=== PATIENT | male | born 1965 | race Caucasian/White ===

== ENCOUNTER 2023-02-07 09:12 | Inpatient (IN) ==
[2023-02-07] MEDS ORDERED: cefTRIAXone SODIUM 2,000 MG/70 ML BAG IV STA (09:33)
--- NOTE | 2023-02-07 10:04 | Emergency Department Note ---
Impression & Plan Cellulitis, Acute hyponatremia, Hypomagnesemia ED Provider Note NAME: VIKRAM ARELLANO AGE: 57 SEX: M : 1965 ARRIVES VIA: Walk-In INFORMANT: Patient, ED PROVIDER(S): Lorenzo Carrero DO CHIEF COMPLAINT: Leg pain HPI: The patient is a 57-year-old male who presented to the emergency department for an evaluation of leg pain and swelling. He has had ongoing symptoms for many months. He noticed his left leg was getting much worse. He does not have a family doctor. He states he has a history of alcohol abuse. He denies having any chest pain or difficulty breathing. He denies having any fevers but he has not checked his temperature. ROS: See above HPI for pertinent positives & negatives. A total of 10 systems reviewed and were otherwise negative. PAST MEDICAL HISTORY: See Below PAST SURGICAL HISTORY: See Below FAMILY HISTORY: See Below SOCIAL HISTORY: See Below HOME MEDICATIONS: See Below ALLERGIES: See Below VITALS: See Below PHYSICAL EXAMINATION: GENERAL: The patient is awake and alert. He is somewhat anxious appearing. EYES: The conjunctivae are clear. The pupils are round and reactive. EARS, NOSE, MOUTH AND THROAT: The nose is without any evidence of any deformity. NECK: The neck is nontender and supple. RESPIRATORY: Normal respiratory effort is noted there is no evidence of wheezing rhonchi or rales CARDIOVASCULAR: Regular rate and rhythm noted there no murmurs rubs or gallops normal S1 normal S2. GASTROINTESTINAL: The abdomen is soft. Abdomen is nontender. MUSCULOSKELETAL/EXTREMITIES: There is no evidence of gross deformity full range of motion is noted in the hips and shoulders. SKIN: There is bilateral lower extremity edema left greater than right. The left leg is very erythematous. There is an ulceration with eschar noted to the left 2nd toe. NEUROLOGIC: Patient is awake alert and oriented x3 MEDICAL DECISION MAKING: The patient is a 57-year-old male who presented to the emergency department for an evaluation of left leg pain and swelling. The patient's history and physical exam appear to be consistent with cellulitis with an ulcer on the left second toe. The patient was treated with IV antibiotics emergency department. He was reevaluated multiple times. The patient does not have a primary care physician. I am concerned about his ability to follow-up as an outpatient. For this reason I discussed this case with the on-call [facility]ist. They have agreed to evaluate the patient in the emergency department for further management and disposition. Triage Nursing notes reviewed. Prior medical records reviewed Vital Signs: reviewed and remarkable for no significant abnormalities Differential diagnosis: Cellulitis, abscess, MRSA infection, DVT, necrotizing fasciitis, dermatitis, drug eruption, allergic reaction, as well as other pathologies. ER treatment provided: See below Diagnostics interpreted by me: ECG: EKG was obtained in the emergency department. My interpretation is sinus bradycardia at 58 bpm. There were no PVCs noted. There is no acute ST segment abnormalities noted. This was compared to a tracing from January 28, 2014. No changes were noted. Cardiac Monitoring: An order was placed for continuous cardiac monitoring. The monitor shows a rate of 68 bpm with sinus rhythm. Laboratory studies: As stated above and show below. Imaging studies: See below. Radiographic imaging was reviewed by myself Consultation(s): I discussed this case with Dr. Ornelas who is on-call for the [facility]ist group. Past Med/Surg History Medical History Avascular necrosis of bone of left hip (03/02/14) Hypertension Social History Smoking Status: Former smoker Preferred Language: Slovenian Feels Safe at Home: Yes Allergies Allergies Allergy/AdvReac Type Severity Reaction Status Date / Time prednisone Allergy Unknown FACIAL Verified 02/07/23 13:29 SWELLING, SWELLING ALL OVER Egg Derived AdvReac Unknown NAUSEATED Verified 02/07/23 13:29 hydrocodone AdvReac Unknown NAUSEA Verified 02/07/23 13:29 morphine AdvReac Unknown NAUSEATED Verified 02/07/23 13:29 Home Meds Home Medications Medication Instructions Recorded Confirmed omeprazole 20 mg tablet,delayed 20 mg PO DAILY PRN Acid Reflux ##0 01/23/09 02/07/23 release zolpidem 10 mg tablet 10 mg PO HS ##0 10/09/11 02/07/23 allopurinol 300 mg tablet 300 mg PO DAILY 02/07/23 02/07/23 atenolol 50 mg tablet 50 mg PO DAILY 02/07/23 02/07/23 Results & Data (ED) Vital Signs Vital Signs - 24 hr 02/07/23 09:20 02/07/23 12:25 02/07/23 11:00 Temperature 36.4 C L Temperature Source Temporal Artery Scan Pulse Rate 67 70 Pulse Rate [Bilateral] 70 Pulse Rhythm Regular Pulse Strength Normal Respiratory Rate 20 18 Respiratory Effort / Characteristics Non-Labored Spontaneous Respiratory Depth Normal Respiratory Pattern Regular Blood Pressure 124/83 Blood Pressure [Left Arm] 133/83 Blood Pressure Mean 96 Blood Pressure Mean [Left Arm] 99 Blood Pressure Position Sitting Pulse Oximetry 97 99 Oxygen Delivery Method Room Air Room Air Sepsis Recent Fever Within 48 Hours No Sepsis New/Unexplained Change in Mental Status No Sepsis Action Taken by Nursing No Action Required 02/07/23 11:15 02/07/23 11:30 02/07/23 11:45 Temperature Temperature Source Pulse Rate Pulse Rate [Bilateral] 73 70 64 Pulse Rhythm Pulse Strength Respiratory Rate 20 20 18 Respiratory Effort / Characteristics Respiratory Depth Respiratory Pattern Blood Pressure Blood Pressure [Left Arm] 161/94 H 142/88 H 149/88 H Blood Pressure Mean Blood Pressure Mean [Left Arm] 116 106 108 Blood Pressure Position Pulse Oximetry 98 96 98 Oxygen Delivery Method Room Air Room Air Room Air Sepsis Recent Fever Within 48 Hours Sepsis New/Unexplained Change in Mental Status Sepsis Action Taken by Nursing 02/07/23 12:00 02/07/23 12:15 02/07/23 12:30 Temperature Temperature Source Pulse Rate Pulse Rate [Bilateral] 59 L 60 78 Pulse Rhythm Pulse Strength Respiratory Rate 18 18 18 Respiratory Effort / Characteristics Respiratory Depth Respiratory Pattern Blood Pressure Blood Pressure [Left Arm] 129/85 126/79 Blood Pressure Mean Blood Pressure Mean [Left Arm] 99 94 Blood Pressure Position Pulse Oximetry 98 98 98 Oxygen Delivery Method Room Air Room Air Room Air Sepsis Recent Fever Within 48 Hours Sepsis New/Unexplained Change in Mental Status Sepsis Action Taken by Nursing 02/07/23 12:45 02/07/23 13:00 02/07/23 13:00 Temperature Temperature Source Pulse Rate Pulse Rate [Bilateral] 63 68 68 Pulse Rhythm Pulse Strength Respiratory Rate 18 18 18 Respiratory Effort / Characteristics Respiratory Depth Respiratory Pattern Blood Pressure Blood Pressure [Left Arm] 142/77 H 135/88 135/88 Blood Pressure Mean Blood Pressure Mean [Left Arm] 98 103 103 Blood Pressure Position Pulse Oximetry 95 99 99 Oxygen Delivery Method Room Air Room Air Room Air Sepsis Recent Fever Within 48 Hours Sepsis New/Unexplained Change in Mental Status Sepsis Action Taken by Nursing 02/07/23 13:25 Temperature Temperature Source Pulse Rate Pulse Rate [Bilateral] Pulse Rhythm Pulse Strength Respiratory Rate Respiratory Effort / Characteristics Respiratory Depth Respiratory Pattern Blood Pressure Blood Pressure [Left Arm] Blood Pressure Mean Blood Pressure Mean [Left Arm] Blood Pressure Position Pulse Oximetry 98 Oxygen Delivery Method Room Air Sepsis Recent Fever Within 48 Hours Sepsis New/Unexplained Change in Mental Status Sepsis Action Taken by Custodial Medications Current Medication List: was personally reviewed by me Laboratory Data Attestation: I reviewed the patient's lab results. 02/07/23 09:33 02/07/23 09:33 Lab Results 02/07/23 02/07/23 02/07/23 Range/Units 09:33 09:33 09:33 WBC 5.38 (4.8-10.8) K/ul RBC 4.26 L (4.70-6.10) M/uL Hgb 13.4 L (14.0-18.0) g/dl Hct 39.1 L (42.0-52.0) % MCV 91.8 (80.0-100.0) fL MCH 31.5 (25.0-34.0) pg MCHC 34.3 (32.0-36.0) g/dL RDW Std Deviation 42.7 (36.4-46.3) fL RDW Coeff of Bertram 12.9 (11.5-14.5) % Plt Count 170 (130-400) K/uL MPV 9.9 (9.4-12.4) fL Immature Gran % (Auto) 0.4 % Neut % (Auto) 60.1 % Lymph % (Auto) 19.7 % Alexander % (Auto) 11.7 % Eos % (Auto) 7.4 % Baso % (Auto) 0.7 % Neut # (Auto) 3.23 (1.40-6.50) K/uL Lymph # (Auto) 1.06 L (1.2-3.4) K/uL Alexander # (Auto) 0.63 H (0.11-0.59) K/uL Eos # (Auto) 0.40 (0-0.50) K/uL Baso # (Auto) 0.04 (0-0.2) K/uL Immature Gran # (Auto) 0.02 (0.01-0.20) K/uL PT 11.9 (9.0-12.0) Seconds INR 1.1 (0.9-1.1) APTT 30.8 (21.0-31.0) Seconds PTT Ratio 1.1 VBG pH (7.36-7.41) VBG pCO2 (38-50) mmHg VBG pO2 mmHg VBG HCO3 mmol/L VBG O2 Saturation % VBG Base Excess mEq/L Sodium 124 L (136-145) mmol/L Potassium 3.4 L (3.5-5.1) mmol/L Chloride 90 L (98-107) mmol/L Carbon Dioxide 27 (21-32) mmol/L Anion Gap 7 (3-11) BUN 7 (6-23) mg/dl Creatinine 0.62 (0.6-1.4) mg/dl Est Cr Clr Drug Dosing 165.0 ml/min Est GFR ( Amer) 129.4 ml/min Est GFR (Non-Af Amer) 111.7 ml/min BUN/Creatinine Ratio 11.3 (10-20) Glucose 102 H (70-99(Fasting)) mg/dl Lactate (0.4-2.0) mmol/L Calcium 9.0 (8.6-10.3) mg/dl Magnesium 1.6 L (1.7-2.4) mg/dl Total Bilirubin 1.1 H (0.2-1.0) mg/dl Direct Bilirubin 0.4 H (0-0.2) mg/dl AST 67 H (13-39) U/L ALT 45 (7-52) U/L Alkaline Phosphatase 185 H (34-104) U/L Troponin I High Sens 3.4 (0-20) pg/ml Total Protein 7.6 (6.0-8.3) gm/dl Albumin 3.7 (3.4-5.0) gm/dl Procalcitonin (0-0.5) ng/ml Urine Color Urine Appearance (Clear) Urine pH (4.5-7.5) Ur Specific Guys (1.000-1.030) Urine Protein (Negative) Urine Glucose (UA) (Negative) Urine Ketones (Negative) Urine Blood (Negative) Urine Nitrite (Negative) Urine Bilirubin (Negative) Urine Urobilinogen (Negative) Ur Leukocyte Esterase (Negative) Ethyl Alcohol mg/dL (<10.0) mg/dl 02/07/23 02/07/23 02/07/23 Range/Units 09:33 09:33 09:33 WBC (4.8-10.8) K/ul RBC (4.70-6.10) M/uL Hgb (14.0-18.0) g/dl Hct (42.0-52.0) % MCV (80.0-100.0) fL MCH (25.0-34.0) pg MCHC (32.0-36.0) g/dL RDW Std Deviation (36.4-46.3) fL RDW Coeff of Bertram (11.5-14.5) % Plt Count (130-400) K/uL MPV (9.4-12.4) fL Immature Gran % (Auto) % Neut % (Auto) % Lymph % (Auto) % Alexander % (Auto) % Eos % (Auto) % Baso % (Auto) % Neut # (Auto) (1.40-6.50) K/uL Lymph # (Auto) (1.2-3.4) K/uL Alexander # (Auto) (0.11-0.59) K/uL Eos # (Auto) (0-0.50) K/uL Baso # (Auto) (0-0.2) K/uL Immature Gran # (Auto) (0.01-0.20) K/uL PT (9.0-12.0) Seconds INR (0.9-1.1) APTT (21.0-31.0) Seconds PTT Ratio VBG pH 7.33 L (7.36-7.41) VBG pCO2 49 (38-50) mmHg VBG pO2 39 mmHg VBG HCO3 26 mmol/L VBG O2 Saturation 60.0 % VBG Base Excess -0.7 mEq/L Sodium (136-145) mmol/L Potassium (3.5-5.1) mmol/L Chloride (98-107) mmol/L Carbon Dioxide (21-32) mmol/L Anion Gap (3-11) BUN (6-23) mg/dl Creatinine (0.6-1.4) mg/dl Est Cr Clr Drug Dosing ml/min Est GFR ( Amer) ml/min Est GFR (Non-Af Amer) ml/min BUN/Creatinine Ratio (10-20) Glucose (70-99(Fasting)) mg/dl Lactate 0.9 (0.4-2.0) mmol/L Calcium (8.6-10.3) mg/dl Magnesium (1.7-2.4) mg/dl Total Bilirubin (0.2-1.0) mg/dl Direct Bilirubin (0-0.2) mg/dl AST (13-39) U/L ALT (7-52) U/L Alkaline Phosphatase (34-104) U/L Troponin I High Sens (0-20) pg/ml Total Protein (6.0-8.3) gm/dl Albumin (3.4-5.0) gm/dl Procalcitonin 0.06 (0-0.5) ng/ml Urine Color Urine Appearance (Clear) Urine pH (4.5-7.5) Ur Specific Guys (1.000-1.030) Urine Protein (Negative) Urine Glucose (UA) (Negative) Urine Ketones (Negative) Urine Blood (Negative) Urine Nitrite (Negative) Urine Bilirubin (Negative) Urine Urobilinogen (Negative) Ur Leukocyte Esterase (Negative) Ethyl Alcohol mg/dL (<10.0) mg/dl 02/07/23 02/07/23 Range/Units 09:33 Unknown WBC (4.8-10.8) K/ul RBC (4.70-6.10) M/uL Hgb (14.0-18.0) g/dl Hct (42.0-52.0) % MCV (80.0-100.0) fL MCH (25.0-34.0) pg MCHC (32.0-36.0) g/dL RDW Std Deviation (36.4-46.3) fL RDW Coeff of Bertram (11.5-14.5) % Plt Count (130-400) K/uL MPV (9.4-12.4) fL Immature Gran % (Auto) % Neut % (Auto) % Lymph % (Auto) % Alexander % (Auto) % Eos % (Auto) % Baso % (Auto) % Neut # (Auto) (1.40-6.50) K/uL Lymph # (Auto) (1.2-3.4) K/uL Alexander # (Auto) (0.11-0.59) K/uL Eos # (Auto) (0-0.50) K/uL Baso # (Auto) (0-0.2) K/uL Immature Gran # (Auto) (0.01-0.20) K/uL PT (9.0-12.0) Seconds INR (0.9-1.1) APTT (21.0-31.0) Seconds PTT Ratio VBG pH (7.36-7.41) VBG pCO2 (38-50) mmHg VBG pO2 mmHg VBG HCO3 mmol/L VBG O2 Saturation % VBG Base Excess mEq/L Sodium (136-145) mmol/L Potassium (3.5-5.1) mmol/L Chloride (98-107) mmol/L Carbon Dioxide (21-32) mmol/L Anion Gap (3-11) BUN (6-23) mg/dl Creatinine (0.6-1.4) mg/dl Est Cr Clr Drug Dosing ml/min Est GFR ( Amer) ml/min Est GFR (Non-Af Amer) ml/min BUN/Creatinine Ratio (10-20) Glucose (70-99(Fasting)) mg/dl Lactate (0.4-2.0) mmol/L Calcium (8.6-10.3) mg/dl Magnesium (1.7-2.4) mg/dl Total Bilirubin (0.2-1.0) mg/dl Direct Bilirubin (0-0.2) mg/dl AST (13-39) U/L ALT (7-52) U/L Alkaline Phosphatase (34-104) U/L Troponin I High Sens (0-20) pg/ml Total Protein (6.0-8.3) gm/dl Albumin (3.4-5.0) gm/dl Procalcitonin (0-0.5) ng/ml Urine Color Yellow Urine Appearance Clear (Clear) Urine pH 7.0 (4.5-7.5) Ur Specific Guys 1.004 (1.000-1.030) Urine Protein Negative (Negative) Urine Glucose (UA) Negative (Negative) Urine Ketones Negative (Negative) Urine Blood Negative (Negative) Urine Nitrite Negative (Negative) Urine Bilirubin Negative (Negative) Urine Urobilinogen Negative (Negative) Ur Leukocyte Esterase Negative (Negative) Ethyl Alcohol mg/dL < 10.0 (<10.0) mg/dl Administered Medications Discontinued Medications Ceftriaxone Sodium (Rocephin) 2,000 mg in 70 mls @ 140 mls/hr IV NOW STA Stop: 02/07/23 10:02 Last Infusion: 02/07/23 11:58 Dose: 0 mls/hr Documented By: Admin: 02/07/23 10:59 Dose: 140 mls/hr Documented By: TRUMAN Magnesium Sulfate/Dextrose (Magnesium Sulfate / D5w) 1 gm in 100 mls @ 100 mls/hr IV NOW STA Stop: 02/07/23 12:09 Last Infusion: 02/07/23 13:26 Dose: 0 mls/hr Documented By: Admin: 02/07/23 12:23 Dose: 100 mls/hr Documented By: Thiamine HCl 100 mg/ Syringe 10 mls @ 2 mls/min IV NOW STA Stop: 02/07/23 11:14 Last Admin: 02/07/23 12:23 Dose: 2 mls/min Documented By: Imaging Data Attestation: I personally reviewed and interpreted this imaging study as follows: My Impression: 1 view chest x-ray was obtained in the emergency department. My interpretation is no free air or definite infiltrate, final report below. Radiologist's Impression: Chest X-Ray 02/07/23 09:33 XR chest 1V portable CLINICAL HISTORY: Sepsis TECHNIQUE: Single frontal radiograph of the chest was obtained. Comparison: None available at the time of this dictation. FINDINGS: No lines and tubes are seen. The cardiomediastinal silhouette is normal. The missy ngs are clear. No evidence of pleural effusion or pneumothorax. IMPRESSION: No acute abnormalities and in particular no radiographic evidence of pneumonia. ACT 112: Negative or not required by law. Electronically signed by: Rony Hunter M.D. 02/07/2023 10:01 AM Venous Doppler Study 02/07/23 09:33 US venous doppler LE CLINICAL HISTORY: swellnig TECHNIQUE: Left lower extremity real-time compression venous ultrasound with Color Doppler imaging. Utilizing real-time ultrasonic imaging multiple real time high-resolution ultrasonic images with compression and noncompression maneuvers of the deep venous system in addition to color doppler imaging were performed from the common femoral vein through the proximal calf veins. COMPARISON: None available at the time of this dictation. FINDINGS/IMPRESSION: Currently there is normal compressibility of the deep venous system from the com mon femoral vein through the proximal calf veins. A small amount of soft tissue edema is seen in the calf. ACT 112: Negative or not required by law. Electronically signed by: Rony Hunter M.D. 02/07/2023 12:25 PM Discharge Plan Visit Data Chief Complaint: Foot Injury/Pain Stated Complaint: L FOOT TOE IS BLACK, ED Provider: Lorenzo Carrero Discharge Problem: Cellulitis, Acute hyponatremia, Hypomagnesemia Patient Disposition: Being Evaluated by Hospitalist Forms Stand Alone Forms: My [facility] Prescriptions Prescriptions: No Action omeprazole 20 mg Tablet,Delayed Release (Dr/Ec) 20 mg PO DAILY PRN (Reason: Acid Reflux) Qty: 0 zolpidem 10 mg Tablet 10 mg PO HS Qty: 0 allopurinol 300 mg tablet 300 mg PO DAILY atenolol 50 mg tablet 50 mg PO DAILY Referrals Referrals: PCP,NO [Primary Care Provider] -
[2023-02-07 10:52] LABS: Basophils # (auto) 0.04 K/uL (0-0.2); Basophils % (auto) 0.7 %; Eosinophils % (auto) 7.4 %; Hematocrit (blood only) 39.1 % (42.0-52.0); Hemoglobin 13.4 g/dl (14.0-18.0); Immature Granulocytes # (auto) 0.02 K/uL (0.01-0.20); Immature Granulocytes % (auto) 0.4 %; Lymphocytes # (auto) 1.06 K/uL (1.2-3.4); Lymphocytes % (auto) 19.7 %; Mean Corpuscular Hemoglobin 31.5 pg (25.0-34.0); Mean Corpuscular Hgb Conc 34.3 g/dL (32.0-36.0); Mean Corpuscular Volume 91.8 fL (80.0-100.0); Mean Platelet Volume 9.9 fL (9.4-12.4); Monocytes # (auto) 0.63 K/uL (0.11-0.59); Monocytes % (auto) 11.7 %; Neutrophils # (auto) 3.23 K/uL (1.40-6.50); Neutrophils % (auto) 60.1 %; Platelet Count 170 K/uL (130-400); RDW Coefficient of Variation 12.9 % (11.5-14.5); RDW Standard Deviation 42.7 fL (36.4-46.3); Red Blood Count 4.26 M/uL (4.70-6.10); White Blood Count 5.38 K/ul (4.8-10.8)
[2023-02-07 11:07] LABS: Base Excess VBG -0.7 mEq/L; HCO3 VBG 26 mmol/L; PCO2 VBG 49 mmHg (38-50); PO2 VBG 39 mmHg; pH VBG 7.33 (7.36-7.41)
[2023-02-07 11:08] LABS: Albumin Level 3.7 gm/dl (3.4-5.0); BUN Creatinine Ratio 11.3 (10-20); Bilirubin Direct 0.4 mg/dl (0-0.2); Bilirubin,Total 1.1 mg/dl (0.2-1.0); Est GFR (African American) 129.4 ml/min; Est GFR (Non-African American) 111.7 ml/min; Magnesium 1.6 mg/dl (1.7-2.4); Potassium 3.4 mmol/L (3.5-5.1); Total Protein 7.6 gm/dl (6.0-8.3)
[2023-02-07] MEDS ORDERED: MAGNESIUM SULFATE / D5W 1 GM/100 ML BAG IV STA (11:10)
[2023-02-07] MEDS ORDERED: THIAMINE HCL 100 MG in SYRINGE 9 ML IV STA (11:10)
[2023-02-07 11:15] LABS: Troponin I High Sensitivity 3.4 pg/ml (0-20)
[2023-02-07 11:25] LABS: INR 1.1 (0.9-1.1); Partial Thromboplastin Ratio 1.1; Partial Thromboplastin Time 30.8 Seconds (21.0-31.0); Prothrombin Time 11.9 Seconds (9.0-12.0)
[2023-02-07 12:03] LABS: Appearance Urine Clear (Clear); Bilirubin Urine Negative (Negative); Blood Urine Negative (Negative); Color Urine Yellow; Glucose Urine UA Negative (Negative); Ketones Urine Negative (Negative); Leukocyte Esterase Urine Negative (Negative); Nitrite Urine Negative (Negative); Protein Urine Negative (Negative); Specific Gravity Urine 1.004 (1.000-1.030); Urobilinogen Urine Negative (Negative)
--- NOTE | 2023-02-07 12:26 | Ultrasound Report ---
US venous doppler LE LT CLINICAL HISTORY: swellnig TECHNIQUE: Left lower extremity real-time compression venous ultrasound with Color Doppler imaging. U tilizing real-time ultrasonic imaging multiple real time high-resolution ultrasonic images with compr ession and noncompression maneuvers of the deep venous system in addition to color doppler imaging we re performed from the common femoral vein through the proximal calf veins. COMPARISON: None available at the time of this dictation. FINDINGS/IMPRESSION: Currently there is normal compressibility of the deep venous system from the common femoral vein thro ugh the proximal calf veins. A small amount of soft tissue edema is seen in the calf. ACT 112: Negative or not required by law. Electronically signed by: Rony Hunter M.D. 02/07/2023 12:25 PM
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
[2023-02-07] MEDS ORDERED: LORazepam 1 MG TAB PO PRN ×3 (14:04)
[2023-02-07] MEDS ORDERED: Ativan PO Alcohol Withdrawal--Active Protocol PO PRN (14:04)
--- NOTE | 2023-02-07 15:45 | XRay Report ---
XR hip LT min 2V CLINICAL HISTORY: Left hip pain TECHNIQUE: 2 views of the left hip and single frontal view of the pelvis were obtained. Comparison: Comparison is made to left hip radiograph 03/02/2014 FINDINGS: There is no evidence of an acute fracture. Total hip arthroplasty is seen without evidence of hardwar e fracture or perihardware lucency. No soft tissue abnormality is seen. IMPRESSION: No evidence of acute osseous injury. ACT 112: Negative or not required by law. Electronically signed by: Rony Hunter M.D. 02/07/2023 3:42 PM
--- NOTE | 2023-02-07 15:54 | XRay Report ---
LEFT ANKLE 3 VIEWS CLINICAL HISTORY: Left ankle swelling. FINDINGS: 3 views of the left ankle are obtained. No prior studies are available for comparison at th e time of dictation. The skeletal structures are osteopenic. No fracture is seen. The ankle mortise i s intact. Degenerative change is noted at the tibiotalar articulation. There is degenerative spurring along the dorsal aspect of the tarsal bones. There is a tiny dorsal heel spur. Soft tissue swelling is present throughout the left leg, greatest around ankle joint. IMPRESSION: Soft tissue swelling with no acute bony abnormality identified. Electronically signed by: Leo Flynn M.D. 02/07/2023 3:52 PM
--- NOTE | 2023-02-07 15:55 | Ultrasound Report ---
US arterial duplex left lower extremity CLINICAL HISTORY: Unilateral Leg Swelling COMPARISON STUDY: None. FINDINGS: The ankle brachial indices were not performed. Normal triphasic to biphasic waveforms and v elocities seen within the left common femoral and left superficial femoral arteries. Monophasic herlinda l velocity waveforms seen within the left popliteal artery. Biphasic normal velocity waveforms seen w ithin the left posterior tibial artery. The elevated peak systolic velocity of 186 cm/s within the di stal left peroneal artery with associated monophasic waveforms. This is consistent with an area of st enosis. Monophasic normal velocity waveforms seen within the left anterior tibial artery and dorsalis pedis arteries suggestive of diffuse atherosclerotic disease. No evidence for arterial occlusion IMPRESSION: 1. No evidence for arterial occlusion within the left lower extremity. 2. Monophasic waveforms seen within the left popliteal artery and majority of the calf arteries sugge stive of diffuse atherosclerotic disease. 3. Elevated peak systolic velocities within the distal left peroneal artery suggestive of hemodynamic ally significant stenosis. ACT 112: Negative or not required by law. Electronically signed by: Eldon Arreola M.D. 02/07/2023 3:53 PM
--- NOTE | 2023-02-07 15:56 | XRay Report ---
XR foot LT min 3V routine CLINICAL HISTORY: Left foot pain/swelling COMPARISON STUDY: None. FINDINGS: Diffuse soft tissue swelling within the left foot. No fracture or dislocation. There is a s oft tissue and bony bunion at the medial head of the first metatarsal. Moderate osteoarthritis at the first MTP joint. The Lisfranc joint is intact. No erosive changes identified. No radiopaque foreign bodies. Mild degenerative changes at the intertarsal joints. IMPRESSION: 1. Diffuse soft tissue swelling within the left foot. 2. No acute fracture or dislocation. ACT 112: Negative or not required by law. Electronically signed by: Eldon Arreola M.D. 02/07/2023 3:55 PM
[2023-02-07] MEDS ORDERED: POTASSIUM CHLORIDE CRTAB 20 MEQ TABCR PO STA (16:51)
[2023-02-07] MEDS ORDERED: PANTOprazole 40 MG TAB PO PRN (16:52)
[2023-02-07 17:01] LABS: BUN Creatinine Ratio 8.9 (10-20); Calcium 9.2 mg/dl (8.6-10.3); Creatinine Clr Calc Pharmacy 182.7 ml/min; Est GFR (Non-African American) 116.4 ml/min; Potassium 3.9 mmol/L (3.5-5.1)
--- NOTE | 2023-02-07 17:09 | Electrocardiogram Report ---
Test Reason : Blood Pressure : / mmHG Vent. Rate : 058 BPM Atrial Rate : 058 BPM P-R Int : 220 ms QRS Dur : 126 ms QT Int : 460 ms P-R-T Axes : 039 028 054 degrees QTc Int : 451 ms Sinus bradycardia with 1st degree A-V block Right bundle branch block Abnormal ECG When compared with ECG of 28-JAN-2014 12:50, MI interval has increased QRS duration has increased Confirmed by Omar Domingo ([id number]) on 02/07/2023 5:09:28 PM Referred By: REFERRED SELF Confirmed By:Jose Domingo
--- NOTE | 2023-02-07 17:17 | XCELERA ---
[id number] \\[id number]
[2023-02-07] MEDS: KETOROLAC TROMETHAMINE 15 MG/ML VIAL IV PRN (21:32)
[2023-02-07] MEDS: ENOXAPARIN INJ 40 MG/0.4 ML SYR SQ SCH (21:33)
[2023-02-07 21:53] LABS: BUN Creatinine Ratio 7.1 (10-20); Calcium 8.9 mg/dl (8.6-10.3); Creatinine Clr Calc Pharmacy 120.4 ml/min; Est GFR (African American) 113.7 ml/min; Est GFR (Non-African American) 98.1 ml/min; Potassium 4.1 mmol/L (3.5-5.1)
[2023-02-07] MEDS: ZOLPIDEM TARTRATE 10 MG TAB PO SCH (21:53)
[2023-02-08 03:52] LABS: Calcium 8.9 mg/dl (8.6-10.3); Potassium 3.7 mmol/L (3.5-5.1)
[2023-02-08 03:58] LABS: BUN Creatinine Ratio 11.1 (10-20); Creatinine Clr Calc Pharmacy 142.1 ml/min; Est GFR (African American) 121.7 ml/min
[2023-02-08 07:05] LABS: Basophils # (auto) 0.04 K/uL (0-0.2); Basophils % (auto) 0.9 %; Eosinophils # (auto) 0.36 K/uL (0-0.50); Eosinophils % (auto) 8.2 %; Hematocrit (blood only) 36.4 % (42.0-52.0); Hemoglobin 12.4 g/dl (14.0-18.0); Immature Granulocytes # (auto) 0.03 K/uL (0.01-0.20); Immature Granulocytes % (auto) 0.7 %; Lymphocytes # (auto) 1.05 K/uL (1.2-3.4); Lymphocytes % (auto) 23.8 %; Mean Corpuscular Hemoglobin 31.6 pg (25.0-34.0); Mean Corpuscular Hgb Conc 34.1 g/dL (32.0-36.0); Mean Corpuscular Volume 92.6 fL (80.0-100.0); Mean Platelet Volume 9.9 fL (9.4-12.4); Monocytes # (auto) 0.58 K/uL (0.11-0.59); Monocytes % (auto) 13.2 %; Neutrophils # (auto) 2.35 K/uL (1.40-6.50); Neutrophils % (auto) 53.2 %; Platelet Count 154 K/uL (130-400); RDW Coefficient of Variation 12.8 % (11.5-14.5); RDW Standard Deviation 43.7 fL (36.4-46.3); Red Blood Count 3.93 M/uL (4.70-6.10); White Blood Count 4.41 K/ul (4.8-10.8)
[2023-02-08 07:28] LABS: Albumin Globulin Ratio 0.9 (0.9-2); Albumin Level 3.3 gm/dl (3.4-5.0); BUN Creatinine Ratio 12.1 (10-20); Bilirubin,Total 0.4 mg/dl (0.2-1.0); Creatinine Clr Calc Pharmacy 153.7 ml/min; Est GFR (African American) 126.1 ml/min; Est GFR (Non-African American) 108.8 ml/min; Globulin 3.5 gm/dl (2.5-4.0); Magnesium 1.8 mg/dl (1.7-2.4); Potassium 3.5 mmol/L (3.5-5.1); Total Protein 6.8 gm/dl (6.0-8.3)
[2023-02-08 07:45] LABS: BUN Creatinine Ratio 11.8 (10-20); Creatinine Clr Calc Pharmacy 149.2 ml/min; Est GFR (African American) 124.6 ml/min; Est GFR (Non-African American) 107.5 ml/min; Potassium 3.5 mmol/L (3.5-5.1)
[2023-02-08] MEDS: cefTRIAXone SODIUM 2,000 MG in DEXTROSE 5% 50 ML IV SCH (09:36)
[2023-02-08] MEDS: allopurinoL 300 MG TAB PO SCH (09:37)
[2023-02-08] MEDS: THIAMINE HCL 100 MG TAB PO SCH (09:37)
[2023-02-08] MEDS: FOLIC ACID 1 MG TAB PO SCH (09:37)
[2023-02-08] MEDS: ATENOLOL 50 MG TABLET PO SCH (09:37)
[2023-02-08] MEDS: POTASSIUM CHLORIDE CRTAB 20 MEQ TABCR PO SCH (09:38)
[2023-02-08] MEDS: MAGNESIUM OXIDE 400 MG TAB PO SCH ×2 (09:38→21:06)
[2023-02-08] MEDS: KETOROLAC TROMETHAMINE 15 MG/ML VIAL IV PRN ×2 (09:51→21:12)
--- NOTE | 2023-02-08 12:44 | Hospitalist Progress Note ---
Date of Service February 08, 2023 Assessment & Plan (1) Cellulitis: Plan: Left foot and distal left lower extremity. Continue intravenous Rocephin for now, day 2. Arterial Doppler of the left lower extremity negative for occlusion but there is vascular disease as expected . Venous Doppler negative for DVT (2) Acute hyponatremia: Plan: With hypoosmolarity. Fluid restriction ordered. Serial labs (3) Dry gangrene: Plan: Concern for dry gangrene distal aspect the left second toe. Podiatry consultation requested (4) Hypomagnesemia: Plan: Corrected. Continue oral replacement. Serial labs (5) Gout: Plan: Stable. No active disease (6) Depression: Plan: Stable. Continue current medical (7) Anxiety: Plan: Stable. Continue current medical management Plan Anticipate eventual discharge to home on an oral antibiotic. Probably sometime early next week Admission and Anticipated Discharge Date Admission Date: February 07, 2023 Subjective Alert. No distress. Sometimes he answers questions appropriately and sometimes he appears to be confused. The distal aspect of the left second toe is blackened which could be dry gangrene. Podiatry consultation requested. Oral potassium and oral magnesium supplementation ordered. Will monitor daily lab studies. Serum osmolarity is 262 which explains the hyponatremia. Venous Doppler study of left lower extremity negative for DVT. He does appear to have a left foot and left lower extremity cellulitis. Continue Rocephin for now. Arterial Doppler studies are negative for occlusion but he does have vascular disease as expected Review of Systems Review of Systems: Constitutional-no fever or chills ENT-no blurred vision, no double vision, no epistaxis, no sore throat Respiratory-no cough, no wheezing, no shortness of breath Cardiac-no palpitations, no chest pain, no syncope GI-no nausea, vomiting, diarrhea, melena, hematochezia -no urinary retention, no urinary incontinence, no dysuria, no hematuria Musculoskeletal-no joint pain, no muscle tenderness Skin-no bruising, no rashes, no pruritus Neuro-no isolated weakness, no paresthesia, no weakness Psych-no depression, no anxiety Physical Exam Physical Exam: General-alert and oriented, no fevers, no chills HEENT-head atraumatic and normocephalic, pupils equal and reactive to light, extraocular muscles intact Neck-no lymphadenopathy or thyromegaly, trachea midline Chest-clear to auscultation percussion. No rales wheezing or rhonchi Cardiac-regular rate and rhythm, normal S1 and S2, no murmurs Abdomen-normal bowel sounds, nontender, no hepatosplenomegaly Extremities-left lower extremity distally on left foot erythema and swelling. Distal aspect of left second toe is blackened which could be dry gangrene. Neuro-cranial nerves II through XII intact, motor and sensory function within normal limits, strength symmetrical , no focal deficits Psych-normal affect, normal mood Results & Data Results & Data Vital Signs (Past 12 Hours) Vital Signs Temp Pulse Pulse Resp BP Pulse Ox O2 Del Method 02/08/23 12:11 36.3 C L 59 L 18 135/81 98 Room Air 02/08/23 08:00 71 02/08/23 07:40 36.5 C 65 18 144/79 H 98 Room Air 02/08/23 03:01 36.7 C 78 18 148/76 H 98 Room Air Laboratory Results 02/08/23 06:28 02/08/23 06:28 PG Care Time/CCT Total # of Minutes Spent Total Time Spent with Patient: Total time spent is greater than 50% in coordination of care (as documented) at patient's floor/unit and/or counseling patient: Coding Level of Care Code 37662 SUB INP/OBS CARE 3/50MIN Diagnoses Cellulitis L03.116 Laterality: left Site of cellulitis: extremity Site of cellulitis of extremity: lower extremity Acute hyponatremia E87.1 Dry gangrene I96 Hypomagnesemia E83.42 Gout M10.9 Depression F32.A Anxiety F41.9 (1) Cellulitis Laterality: left Site of cellulitis: extremity Site of cellulitis of extremity: lower extremity Qualified Code(s): L03.116 - Cellulitis of left lower limb
[2023-02-08] MEDS: ENOXAPARIN INJ 40 MG/0.4 ML SYR SQ SCH (21:06)
[2023-02-08] MEDS: ZOLPIDEM TARTRATE 10 MG TAB PO SCH (21:35)
[2023-02-09] MEDS: KETOROLAC TROMETHAMINE 15 MG/ML VIAL IV PRN ×2 (03:45→20:49)
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
[2023-02-09 07:36] LABS: BUN Creatinine Ratio 14.3 (10-20); Calcium 9.2 mg/dl (8.6-10.3); Creatinine Clr Calc Pharmacy 160.1 ml/min; Est GFR (African American) 128.6 ml/min; Est GFR (Non-African American) 110.9 ml/min; Magnesium 1.9 mg/dl (1.7-2.4)
[2023-02-09] MEDS: MAGNESIUM OXIDE 400 MG TAB PO SCH ×2 (08:45→20:49)
[2023-02-09] MEDS: allopurinoL 300 MG TAB PO SCH (08:45)
[2023-02-09] MEDS: FOLIC ACID 1 MG TAB PO SCH (08:45)
[2023-02-09] MEDS: ATENOLOL 50 MG TABLET PO SCH (08:45)
[2023-02-09] MEDS: POTASSIUM CHLORIDE CRTAB 20 MEQ TABCR PO SCH (08:46)
[2023-02-09] MEDS: THIAMINE HCL 100 MG TAB PO SCH (08:46)
[2023-02-09] MEDS: cefTRIAXone SODIUM 2,000 MG in DEXTROSE 5% 50 ML IV SCH (09:05)
--- NOTE | 2023-02-09 14:05 | Hospitalist Progress Note ---
Date of Service February 09, 2023 Assessment & Plan (1) Cellulitis: Plan: Improved appearance of the distal left lower extremity and foot. Continue intravenous Rocephin. Eventual discharge on oral antibiotic (2) Acute hyponatremia: Plan: Improving with fluid restriction. Serum osmolarity was low on admission. (3) Dry gangrene: Plan: Distal left second toe. Podiatry consultation appreciated. He will have definitive treatment upon follow-up as an outpatient in the office (4) Hypomagnesemia: Plan: Corrected (5) Gout: Plan: Stable. Continue current medical management (6) Depression: Plan: Stable. Continue current medical (7) Anxiety: Plan: Stable. Continue current medical management Plan Anticipate discharge tomorrow, February 10, on oral antibiotic Admission and Anticipated Discharge Date Admission Date: February 07, 2023 Subjective Alert and oriented. No new problems. The left lower extremity cellulitis appears better. Podiatry evaluation noted. He will need follow-up in the office. Sodium has improved to 133. Magnesium and potassium levels are now normal. Probable discharge to home tomorrow on oral antibiotic, February 10 Review of Systems Review of Systems: Constitutional-no fever or chills ENT-no blurred vision, no double vision, no epistaxis, no sore throat Respiratory-no cough, no wheezing, no shortness of breath Cardiac-no palpitations, no chest pain, no syncope GI-no nausea, vomiting, diarrhea, melena, hematochezia -no urinary retention, no urinary incontinence, no dysuria, no hematuria Musculoskeletal-no joint pain, no muscle tenderness Skin-no bruising, no rashes, no pruritus Neuro-no isolated weakness, no paresthesia, no weakness Psych-no depression, no anxiety Physical Exam Physical Exam: General-alert and oriented x3, no fevers, no chills HEENT-head atraumatic and normocephalic, pupils equal and reactive to light, extraocular muscles intact Neck-no lymphadenopathy or thyromegaly, trachea midline Chest-clear to auscultation percussion. No rales wheezing or rhonchi Cardiac-regular rate and rhythm, normal S1 and S2, no murmurs Abdomen-normal bowel sounds, nontender, no hepatosplenomegaly Extremities-distal left lower extremity cellulitis is resolving with improved appearance of the left foot. Dry gangrenous changes of the distal aspect of the left second toe Neuro-cranial nerves II through XII intact, motor and sensory function within normal limits, strength symmetrical, no focal deficits Psych-normal affect, normal mood Results & Data Results & Data Vital Signs (Past 12 Hours) Vital Signs Temp Pulse Pulse Resp BP Pulse Ox O2 Del Method 02/09/23 11:37 36.6 C 76 16 134/67 98 Room Air 02/09/23 07:25 36.4 C L 64 16 140/78 97 Room Air 02/09/23 07:29 58 L 02/09/23 03:18 36.4 C L 64 18 149/84 H 98 Room Air Laboratory Results 02/08/23 06:28 02/09/23 06:47 PG Care Time/CCT Total # of Minutes Spent Total Time Spent with Patient: Total time spent is greater than 50% in coordination of care (as documented) at patient's floor/unit and/or counseling patient: Coding Level of Care Code 64233 SUB INP/OBS CARE 3/50MIN Diagnoses Cellulitis L03.116 Laterality: left Site of cellulitis: extremity Site of cellulitis of extremity: lower extremity Acute hyponatremia E87.1 Dry gangrene I96 Hypomagnesemia E83.42 Gout M10.9 Depression F32.A Anxiety F41.9 (1) Cellulitis Laterality: left Site of cellulitis: extremity Site of cellulitis of extremity: lower extremity Qualified Code(s): L03.116 - Cellulitis of left lower limb
[2023-02-09] MEDS: ENOXAPARIN INJ 40 MG/0.4 ML SYR SQ SCH (20:49)
[2023-02-09] MEDS: ZOLPIDEM TARTRATE 10 MG TAB PO SCH (20:49)
--- NOTE | 2023-02-09 21:23 | Orthopedic Progress Note ---
Date of Service February 09, 2023 Assessment & Plan (1) Dry gangrene: Plan: Patient seen, evaluated, and treated. A thorough evaluation of left distal toe wound was done in detail. Sharp excisional debridement of wound with out incident. Patient tolerated procedure well. See procedure noted below. Will continue to follow while in house. Thank you for allowing me to participate in the care of this Patient. Excisional debridement of deep tissue completed. The ulcer base is described as containing has pink granulation. Necrotic or devitalized tissue is estimated to be present in approximately 60% of the pressure ulcer bed. The ulcer has been exposed full-thickness tissue. The area was prepped and draped in usual aseptic manner. The procedure was performed and a clean field. I debrided the wound sharply with a sterile #15 blade and necrotic tissue was e xcised down to and including subcutaneous tissue . Bleeding was minimal and hemostasis was achieved using pressure. The patient tolerated procedure well. Postprocedure no increased pain. (2) GERD (gastroesophageal reflux disease): (3) Cellulitis: Admission and Anticipated Discharge Date Admission Date: February 07, 2023 Subjective Patient seen at bedside resting comfortably. He notes no complaints. Review of Systems Review of Systems: All systems reviewed & are unremarkable except as noted in Subjective Physical Exam Constitutional: well developed, well nourished, cooperative and comfortable Eyes: normal visual boudreaux by confrontation Respiratory: normal respiratory effort Cardiovascular: Rate/Rhythm: regular rate and regular rhythm Vessels: posterior tibial pulses present and dorsalis pedis pulses present Musculoskeletal: Extremities: strength 5/5 throughout and + foot abnormality (Digital contractures 2-5) Skin: + ulcer (Left second toe full thickness 0.5 x 0.5 x 0.1cm) Neurologic: moves all extremities (Absent epicritic sensation) Psychiatric: Orientation: alert and oriented x 3 Results & Data Vital Signs (Past 12 Hours) Vital Signs Temp Pulse Pulse Resp BP Pulse Ox O2 Del Method 02/09/23 19:21 36.6 C 69 18 135/81 97 Room Air 02/09/23 16:00 57 L 02/09/23 15:30 36.4 C L 65 16 138/65 96 Room Air 02/09/23 11:37 36.6 C 76 16 134/67 98 Room Air (3) Cellulitis Laterality: left Site of cellulitis: extremity Site of cellulitis of extremity: lower extremity Qualified Code(s): L03.116 - Cellulitis of left lower limb
[2023-02-10] MEDS ORDERED: ACETAMINOPHEN 500 MG TAB PO PRN (00:19)
[2023-02-10] MEDS: ATENOLOL 50 MG TABLET PO SCH (07:44)
[2023-02-10] MEDS: MAGNESIUM OXIDE 400 MG TAB PO SCH (07:44)
[2023-02-10] MEDS: THIAMINE HCL 100 MG TAB PO SCH (07:44)
[2023-02-10] MEDS: allopurinoL 300 MG TAB PO SCH (07:44)
[2023-02-10] MEDS: FOLIC ACID 1 MG TAB PO SCH (07:45)
[2023-02-10] MEDS: POTASSIUM CHLORIDE CRTAB 20 MEQ TABCR PO SCH (07:45)
[2023-02-10] MEDS: cefTRIAXone SODIUM 2,000 MG in DEXTROSE 5% 50 ML IV SCH (07:52)
[2023-02-10 08:01] LABS: Calcium 9.1 mg/dl (8.6-10.3); Magnesium 1.9 mg/dl (1.7-2.4); Potassium 4.1 mmol/L (3.5-5.1)
[2023-02-10 08:06] LABS: BUN Creatinine Ratio 17.5 (10-20); Creatinine Clr Calc Pharmacy 177.1 ml/min; Est GFR (Non-African American) 115.6 ml/min
--- NOTE | 2023-02-10 13:01 | Discharge Summary ---
Date of Service February 10, 2023 Principal Diagnosis Left lower extremity cellulitis, hypoosmolar hyponatremia, hypomagnesemia, hypokalemia, dry gangrene distal left second toe Discharge Exam General-alert and oriented x3, no fevers, no chills HEENT-head atraumatic and normocephalic, pupils equal and reactive to light, extraocular muscles intact Neck-no lymphadenopathy or thyromegaly, trachea midline Chest-clear to auscultation percussion. No rales wheezing or rhonchi Cardiac-regular rate and rhythm, normal S1 and S2, no murmurs Abdomen-normal bowel sounds, nontender, no hepatosplenomegaly Extremities-distal left lower extremity cellulitis is resolving with improved appearance of the left foot. Debridement of dry gangrene of the distal left second toe has occurred Neuro-cranial nerves II through XII intact, motor and sensory function within normal limits, strength symmetrical, no focal deficits Psych-normal affect, normal mood Discharge Data Allergies Allergy/AdvReac Type Severity Reaction Status Date / Time prednisone Allergy Unknown FACIAL Verified 02/07/23 13:29 SWELLING, SWELLING ALL OVER Egg Derived AdvReac Unknown NAUSEATED Verified 02/07/23 13:29 hydrocodone AdvReac Unknown NAUSEA Verified 02/07/23 13:29 morphine AdvReac Unknown NAUSEATED Verified 02/07/23 13:29 Consultations 02/07/23 12:57 ED Decision to Admit Stat 02/08/23 12:37 Consult Podiatry Routine Ordered Studies 02/07/23 09:33 US venous doppler LE LT Stat 02/07/23 14:00 US arterial duplex LE LT Stat Hospital Course (1) Cellulitis: Improving appearance of the distal left lower extremity and foot. Treated while hospitalized with intravenous Rocephin. Home today, February 10, on cephalexin (2) Acute hyponatremia: Improving with fluid restriction. Serum osmolarity was low on admission. (3) Dry gangrene: Distal left second toe. Podiatry consultation appreciated. This was debrided yesterday, February 09. Outpatient follow-up with podiatry recommended. (4) Hypomagnesemia: Corrected. Continue Mag-Ox at discharge (5) Gout: Stable. Continue current medical management (6) Depression: Stable. Continue current medical (7) Anxiety: Stable. Continue current medical management Plan Home todayFebruary 10 Total Time Total Time Spent Total Time Spent (In Minutes): 45-minute Discharge Plan Discharge Items Patient Disposition: Home - Self-Care Reason For Visit: CELLULITIS Discharge Diagnosis: Left lower extremity cellulitis, dry gangrene distal left second toe, hypoosmolar hyponatremia, hypomagnesemia, hypokalemia Activity: Resume your previous activity Non-emergency contact: Primary Care Provider Call non-emergency contact if: you have any medication questions Follow-up/Referrals: PCP,NO [Primary Care Provider] - Diet: Regular and Heart Healthy Addtl Attending Provider Instructions: Follow-up with learning and development officer, Dr. Rivera, for continued treatment of left second toe. Alcohol cessation highly recommended. Take cephalexin 500 mg 3 times a day for 1 more week. Continue potassium supplementation and magnesium supplementation. Use tramadol as needed for pain Pending Studies at Discharge: No Stand-Alone Forms: My FID3, Smoking Cessation Medications and DC Order Prescriptions: New potassium chloride 20 mEq Tablet,Er Particles/Crystals 20 meq PO QAM Qty: 30 0RF magnesium oxide 400 mg (241.3 mg magnesium) Tablet 400 mg PO BID Qty: 60 0RF cephalexin 500 mg capsule 500 mg PO TID 10 Days Qty: 30 0RF tramadol 50 mg tablet 50 mg PO Q6H PRN (Reason: pain) Qty: 20 0RF Continued omeprazole 20 mg Tablet,Delayed Release (Dr/Ec) 20 mg PO DAILY PRN (Reason: Acid Reflux) Qty: 0 zolpidem 10 mg Tablet 10 mg PO HS Qty: 0 allopurinol 300 mg tablet 300 mg PO DAILY atenolol 50 mg tablet 50 mg PO DAILY Discharge Orders: Discharge Order (Routine); Ordered 02/10/23 Ordered By: Leon Hilario Admission Data Admit Date/Time: 02/07/23 13:43 Attending Provider: Leon Hilario Admit Provider: Kita Draper Primary Care Provider: PCP,NO Other Providers: Adan Ruiz ; Mani Rivera Coding Level of Care Code 35366 INP/OBS DISCH >30 MIN Diagnoses Cellulitis L03.116 Laterality: left Site of cellulitis: extremity Site of cellulitis of extremity: lower extremity Acute hyponatremia E87.1 Dry gangrene I96 Hypomagnesemia E83.42 Gout M10.9 Depression F32.A Anxiety F41.9
--- NOTE | 2023-02-21 14:56 | Coding Query ---
CODING QUERY To promote full compliance with coding requirements relating to patient care, provider participation is requested in all cases of flavorer uncertainty. Please assist us with the question(s) below: Coding Question(s): Dr. Rivera's orthopedic progess note on 02/08 describes this patient's left foot ulcer as "Necrotic or devitalized tissue is estimated to be present in approximately 60% of the pressure ulcer bed.' with 'Excisional debridement of deep tissue completed." In your professional opinion, is there a more specific ulcer to be determined out of the documentation? 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 ( ) other, please specify Thank you Bisi Pascal Principal Diagnosis: "that condition established after study, to be chiefly responsible for occasioning the admission of the patient to the hospital for care." Co-Existing Principal Diagnosis: "when two or more diagnoses equally meet the criteria for principal diagnosis as determined by the circumstances of admission, diagnostic work up, and/or therapy provided, and the Alphabetic Index, Tabular List, or another coding guideline does not provide sequencing direction, any one of the diagnoses may be sequenced first." "When the physician has documented what appears to be a current diagnosis in the body of the record, but has not included the diagnosis in the final diagnostic statement, the physician should be asked whether the diagnosis should be added." (Source [facility] 2 QTR90. p3-4) SARABJIT
== END 2023-02-10 16:20 | disposition home or self-care (01) | DRG 570 ==
LOC: ED 09:12 → SUATTDRO 13:43 → 2N 13:43

== ENCOUNTER 2025-01-11 13:24 | Inpatient (IN) ==
[2025-01-11 14:59] LABS: Alanine Aminotransferase 28 U/L (7-52); Albumin Globulin Ratio 0.8 (0.9-2); Alkaline Phosphatase 135 U/L (34-104); Anion Gap 6 (3-11); Bilirubin,Total 0.6 mg/dl (0.2-1.0); Blood Urea Nitrogen 17 mg/dl (6-23); Calcium 9.1 mg/dl (8.6-10.3); Carbon Dioxide 23 mmol/L (21-32); Chloride 103 mmol/L (98-107); Globulin 4.1 gm/dl (2.5-4.0); Glucose 89 mg/dl (70-99(Fasting)); Potassium 4.0 mmol/L (3.5-5.1); Sodium 132 mmol/L (136-145); Total Protein 7.4 gm/dl (6.0-8.3)
[2025-01-11 15:05] LABS: Hematocrit (blood only) 35.0 % (42.0-52.0); Hemoglobin 11.6 g/dl (14.0-18.0); Immature Granulocytes # (auto) 0.07 K/uL (0.01-0.20); Immature Granulocytes % (auto) 0.7 %; Mean Corpuscular Hemoglobin 29.6 pg (25.0-34.0); Mean Corpuscular Volume 89.3 fL (80.0-100.0); Platelet Count 173 K/uL (130-400); RDW Standard Deviation 48.1 fL (36.4-46.3); Red Blood Count 3.92 M/uL (4.70-6.10); White Blood Count 9.84 K/ul (4.8-10.8)
[2025-01-11] MEDS: OPTIRAY 320 100ml IV ONE (18:22)
--- NOTE | 2025-01-11 20:12 | XRay Report ---
EXAM: XR foot LT min 3V routine CLINICAL HISTORY: open wound/area 3rd toe TECHNIQUE: X-ray images of the left foot were obtained in anteroposterior (AP), lateral, and oblique projections. COMPARISON: CR dated 02/07/2023. FINDINGS: Bone Structure: Erosive changes are seen in the tip of the distal phalanx of the third toe. New. No fracture or dislocation. Joint Spaces: Prominent hallux valgus with moderate osteoarthritic changes at first metatarsophalangeal joint. Mild tibiotalar osteoarthritic changes with possible tiny intra-articular loose body. Mild navicular cuneiform joint osteoarthritis. Soft Tissues: Diffuse soft tissue swelling around 3rd toe with scattered tiny calcific/bony foci. IMPRESSION: 1. New changes favoring acute osteomyelitis of tip of distal phalanx of 3rd toe with surrounding soft tissue swelling. Clinical and lab correlation is suggested. 2. Stable prominent hallux valgus and osteoarthritic changes. Possible new intra-articular loose body along anterior compartment of ankle joint. Disclaimer: A subtle bone abnormality or fracture may not be readily apparent on X-rays, thus clinical correlation and further imaging including follow-up CT, MRI, or follow-up X-rays are advised as needed. Electronically signed by Celestine Leiva 01-11-2025 8:09 PM
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
[2025-01-11] MEDS: ACETAMINOPHEN 1,000 MG/100 ML VIAL IV STA (20:21)
--- NOTE | 2025-01-11 21:23 | CT Scan Report ---
EXAM: CT foot RT w con CLINICAL HISTORY: wound TECHNIQUE: Contiguous 3.[address] images of the right foot were obtained with intravenous contrast (90 cc Optiray 320). Sagittal and coronal multiplanar reformats were acquired. 90 ml Optiray 320 intravenous contrast was administered. One of the following dose reduction techniques was utilized for this exam: Automated exposure control, adjustment of the mA and/or kV according to patient size, and use of iterative reconstruction. Radiation dose: CTDI = 49.96 mGy and DLP = 1022.53 mGy-cm. COMPARISON: No previous studies are available for comparison. FINDINGS: Bones: Normal alignment of the tarsal bones, metatarsals, and phalanges. No fractures or dislocations. No lytic or sclerotic lesions. Normal bone density. Joints: Tibiotalar, tibiofibular, and talofibular arthritic changes are noted, evident with narrowed joint spaces and positive marginal osteophytes. Extensive 1st metatarsophalangeal and, to a lesser extent, 2nd metatarsophalangeal joint arthritis noted, with narrowed joint space, presence of marginal osteophytes, sclerosis of the articular surfaces, and subchondral cystic changes. Mild arthritic changes affecting the intertarsal joints. No CT evidence of abnormal joint dislocation. Mild ankle joint effusions. Soft Tissues: A diffuse leg and ankle subcutaneous, skin edema, and fatty stranding. No masses. No abnormal enhancement post-contrast. Tendons and Ligaments: A few calcifications are noted along the posterior aspect of the calcaneus along the Achilles tendon, features of tenosynovitis. Intact and normal appearance of the major tendons and ligaments, including the rest of the Achilles tendon, plantar fascia, and other tendons around the foot. No evidence of other tendinopathy, tendon tears, or ligamentous injury. Muscles: Normal appearance of the surrounding musculature. No muscle atrophy or abnormal density changes. Neurovascular Structures: Normal appearance and enhancement of the visualized neurovascular structures. No evidence of compression or abnormal enhancement. IMPRESSION: 1. Diffuse leg and ankle subcutaneous and skin changes as described, likely an inflammatory condition (as cellulitis) for clinical and laboratory correlation. 2. Tibiotalar, tibiofibular, and talofibular arthritic changes, 3. 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 4. Mild arthritic changes affecting the intertarsal joints. 5. Mild ankle joint effusions. 6. A few calcifications along the posterior aspect of the calcaneus along the Achilles tendon, features of tenosynovitis. Electronically signed by Celestine Leiva 01-11-2025 9:23 PM
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
[2025-01-11] MEDS: KETOROLAC TROMETHAMINE 15 MG/ML VIAL IV STA (22:28)
[2025-01-11] MEDS ORDERED: VANCOMYCIN CONSULT ACTIVE PRN ×2 (22:28→23:27)
[2025-01-11] MEDS: FOLIC ACID 1 MG in SYRINGE 9.8 ML IV STA (22:28)
[2025-01-11] MEDS: THIAMINE HCL 500 MG in SODIUM CHLORIDE 0.9% 50 ML IV STA (22:28)
[2025-01-11] MEDS ORDERED: ONDANSETRON INJ 2 MG/ML 2 ML VIAL IV PRN (23:27)
[2025-01-12] MEDS: MELATONIN 3 MG TAB PO PRN (00:20)
[2025-01-12] MEDS: VANCOMYCIN HCL 1,750 MG in SODIUM CHLORIDE 0.9% 500 ML IV STA (00:22)
[2025-01-12 01:00] LABS: Appearance Urine Clear (Clear); Bacteria Urine Automated None Seen (None Seen); Cast Urine Automated 0-2 /lpf (0-2); Epithelial Cell Urine Auto 0-2 /hpf (0-2); Glucose Urine UA Negative (Negative); WBC Urine Automated 0-5 /hpf (0-5)
[2025-01-12] MEDS: cefTRIAXone SODIUM 2,000 MG/50 ML BAG IV STA (01:37)
[2025-01-12] MEDS: KETOROLAC TROMETHAMINE 15 MG/ML VIAL IV PRN (02:15)
[2025-01-12] MEDS ORDERED: LACTATED RINGER'S 1,000 ML IV SCH (05:00)
[2025-01-12] MEDS: SODIUM CHLORIDE 0.9% 1,000 ML IV SCH (05:02)
[2025-01-12 06:39] LABS: Hematocrit (blood only) 30.3 % (42.0-52.0); Hemoglobin 10.0 g/dl (14.0-18.0); Immature Granulocytes # (auto) 0.07 K/uL (0.01-0.20); Immature Granulocytes % (auto) 1.1 %; Mean Corpuscular Hemoglobin 29.8 pg (25.0-34.0); Mean Corpuscular Volume 90.2 fL (80.0-100.0); Platelet Count 153 K/uL (130-400); RDW Standard Deviation 48.7 fL (36.4-46.3); Red Blood Count 3.36 M/uL (4.70-6.10); White Blood Count 6.57 K/ul (4.8-10.8)
[2025-01-12 07:03] LABS: Alanine Aminotransferase 23.0 U/L (7-52); Albumin Globulin Ratio 0.8 (0.9-2); Alkaline Phosphatase 109.0 U/L (34-104); Anion Gap 5.0 (3-11); Bilirubin,Total 0.3 mg/dl (0.2-1.0); Blood Urea Nitrogen 15.0 mg/dl (6-23); Calcium 7.9 mg/dl (8.6-10.3); Carbon Dioxide 24.0 mmol/L (21-32); Chloride 105.0 mmol/L (98-107); Creatinine Clr Calc Pharmacy 141.5 ml/min; Globulin 3.6 gm/dl (2.5-4.0); Glucose 105.0 mg/dl (70-99(Fasting)); Potassium 4.0 mmol/L (3.5-5.1); Sodium 134.0 mmol/L (136-145); Total Protein 6.4 gm/dl (6.0-8.3)
[2025-01-12] MEDS ORDERED: FOLIC ACID 1 MG in SYRINGE 9.8 ML IV SCH (09:00)
[2025-01-12] MEDS ORDERED: THIAMINE HCL 100 MG in SYRINGE 9 ML IV SCH (09:00)
--- NOTE | 2025-01-12 09:00 | Pharmacy Report ---
Pharmacy PK ABX Note - Date of Service January 12, 2025 - Assessment and Plan Assessment 59 year old M receiving vancomycin and rocephin for left foot osteomyelitis. Blood cultures and foot culture pending. Plan Vancomycin * Loading dose: 1750 mg IV x 1 * Maintenance dose: 1750 mg IV every 12 hours * Regimen is predicted to achieve target AUC/JT of 400-600 mg/L.hr * Level ordered for tomorrow AM to assess dosing Pharmacy will continue to follow and will adjust dose/frequency as necessary. Thank you. Pharmacy has transitioned to AUC monitoring for vancomycin. AUC/JT is the preferred PK/PD target and is associated with decreased risk of nephrotoxicity compared to traditional trough targets.
[2025-01-12] MEDS: VANCOMYCIN HCL 1,750 MG in SODIUM CHLORIDE 0.9% 500 ML IV SCH (09:36)
[2025-01-12] MEDS: THIAMINE HCL 100 MG TAB PO SCH (09:40)
[2025-01-12] MEDS: MULTIVITAMIN TAB PO SCH (09:40)
[2025-01-12] MEDS: FOLIC ACID 1 MG TAB PO SCH (09:40)
[2025-01-12] MEDS: ATENOLOL 50 MG TABLET PO SCH (09:41)
--- NOTE | 2025-01-12 11:35 | XRay Report ---
XR foot RT min 3V routine CLINICAL HISTORY: wound COMPARISON: None FINDINGS: There is soft tissue swelling medial to the first MTP joint. There is mild metatarsus prim us varus hallux valgus with bunion. There are moderate degenerative changes at the first and second M TP joints without erosions. No fracture or dislocation. No evidence of osteomyelitis seen. There is a 4 mm wire-like metallic foreign body in the soft tissues medial and plantar to the proximal aspect o f the first metatarsal. IMPRESSION: 1. No evidence of osteomyelitis seen. 2. Small soft tissue foreign body as described. 3. Otherwise as described. ACT 112: Negative or not required by law. Electronically signed by: Justin Carrillo M.D. 01/12/2025 11:33 AM
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
[2025-01-12] MEDS: ACETAMINOPHEN 325 MG TAB PO PRN (17:44)
--- NOTE | 2025-01-12 18:29 | Hospitalist Progress Note ---
Date of Service January 12, 2025 Assessment & Plan (1) Toe osteomyelitis, left: Plan: s/p empiric vancomycin 1.75g IV x 1 dose (01/12/2025, 12:22am), ceftriaxone 2g IV x 1 dose (01/12/2025, 1:37am) in [facility]. Continue empiric vancomycin 1.75g IV q12 (day #1 on 01/12/2025, 9:36am) and ceftriaxone 2g IV daily (day #1 on 01/12/2025, 10:30pm) as patient awaits definitive intervention/treatment of acute left 3rd toe tip osteomyelitis, namely, left 3rd toe amputation (01/13/2025, 7:15am, [facility] Podiatric Surgeon Dr. Maximiliano Maciel). (2) Cellulitis of right foot: Plan: s/p empiric vancomycin 1.75g IV x 1 dose (01/12/2025, 12:22am), ceftriaxone 2g IV x 1 dose (01/12/2025, 1:37am) in [facility]. Continue empiric vancomycin 1.75g IV q12 (day #1 on 01/12/2025, 9:36am) and ceftriaxone 2g IV daily (day #1 on 01/12/2025, 10:30pm). Check vitals, right foot exam, WBC, ESR, and CRP in the 01/13/2025 am. (3) Acute hyponatremia: Plan: cf., Na 132 mmol/L (01/11/2025, 2:28pm). cf., Na 134 mmol/L (01/12/2025, 6:12am). cf., chronic hypovolemic hyponatremia with baseline Na range, 124 mmol/L (02/07/2023, 9:33am) to 133 mmol/L (02/09/2023, 6:47am). Etiology of chronic, NOT ACUTE, hypovolemic hyponatremia is most probably due to chronic ETOH abuse, which in turn, leads to chronic ETOH-mediated natri-uresis. Patient remains asymptomatic with this mild degree of chronic, NOT ACUTE, hypovolemic hyponatremia. Hence, I have opted to observe this laboratory anomaly while patient remains in [facility]. (4) Alcohol use: Plan: Patient concedes to drinking whisky and beer on an alternating, daily basis. Patient has no stigmata (e.g., tachycardia, tachypnea, diaphoresis, agitation, anxiety, panic, tremors, etc.) of acute ETOH withdrawal on 01/12/2025. Continue CIWA scale scoring and lorazepam 1mg IV q1 prn CIWA score 6-10. Plan Patient is a 59-year-old male with past medical history of alcohol use, GERD, HTN, depression, cellulitis requiring admission in 2022. Patient presented due to bilateral foot pain and was found to have left foot osteomyelitis of his distal phalanx of the third toe. He is being admitted for IV antibiotics. #left foot osteomyelitis left foot XR showed osteomyelitis of distal phalanx of third toe. Nonseptic at time of admission; no leukocytosis, VSS, afebrile. patient denies any trauma to the area however does endorse mild neuropathy. No history of DM. Wound (of right foot as no place of culture of left) and blood cultures ordered Will cover with Rocephin and vancomycin - No previous positive cultures on file, no significant risk factors Podiatry consulted Wound care consulted Daily wound care - ordered esr, crp, procal Trend CBC #Right foot cellulitis right foot CT revealed no signs of osteomyelitis however skin changes suggestive of cellulitis. Daily wound care Antibiotics as above #Hyponatremia/alcohol use - Typically drinks 4-6 beers per day. NA 132 at time of admission, improved from baseline. No symptoms of withdrawal on admission. - AWSS at risk protocol with IV Ativan as needed - Thiamine IV 100mg and folic acid 1mg IV QAM; received thiamine 500 Mg IV and folic acid 1 Mg IV at time of admission Daily multivitamin - avoid IVF and defer fluid restriction given sodium improved from baseline Trend BMP #HTNcontinue atenolol #GERDcontinue PPI VTE ppx: SCDs, low risk Dispo: med surg Admission and Anticipated Discharge Date Admission Date: January 11, 2025 Subjective "I feel a lot better than yesterday (01/11/2025). The antibiotics are working, Doc." Review of Systems Constitutional: Negative for antecedent/coincident fevers, chills, diaphoresis, cough, wheeze, sore throat, hemoptysis, chest pains, palpitations, pleurisy, nausea, vomiting, diarrhea, abdominal pain, pelvic pain, hematemesis, hematochezia, melena, hematuria, dysuria, frequency, urgency, headaches, dizziness, lightheadedness, visual changes, hearing changes, weakness, falls, syncope, trauma, travel history, sick contacts, or food/drug ingestions novel or new. All other review of systems are reported as negative by the patient on 01/12/2025. Physical Exam Constitutional: General: Comfortable, coherent, and cooperative. Not confused, obtunded, or lethargic. Patient speaks with regular radha, and in complete, fluent, and articulate 7-9 word sentences without pause, interruption, cough, or wheeze with O2 sat 96% on room air (01/12/2025, 9:40am). HEENT: Normocephalic, atraumatic. No nystagmus, gaze paresis, anisocoria, miosis, mydriasis, hyphema, scleral injection, conjunctivitis, or pterygium. No otorrhea or rhinorrhea. No pharyngeal erythema, edema, or discharge. Neck: Supple, no stridor, bruit, goiter, or hepato-jugular reflux. Jugular venous pressure is estimated to be 3 cm above the sternal angle of Hair, which in turn, is 5 cm above the level of the right atrium; with jugular venous pressure estimated to be 8 cm, then, there is no jugular venous distention on 01/12/2025. Lymphatics: No cervical (anterior/posterior), supraclavicular, infraclavicular, axillary, epitrochlear, or inguinal adenopathy. Chest: Symmetric rise and fall with respirations. Non-tender to palpation. Lungs: Clear to auscultation and percussion. Heart: Regular rate and rhythm. S1 and S2 noted. No S3 or S4 summation gallop. No tripartite friction rub. Grade II/ early systolic murmur @ LLSB without radiation to the carotids, axilla, or back, and which remains invariant in regards to the respiratory cycle. Abdomen: Soft, non-tender, non-distended. No rebound, guarding, John's sign, or organomegaly. Bowel sounds auscultated in all 4 quadrants. Extremities: No clubbing, cyanosis, or edema. Skin: No decubitus ulcer or enanthem. Skin: Positive acute (e.g., ~2 weeks long) exanthem involving the right foot (e.g., dorsum of right foot, lateral sole with ruptured bulla (with sero-sanguineous drainage, no suppuration) on edge of right 5th metatarsophalanx on a deeply erythematous, warm, minimally tender base without induration, crepitus, fluctuance, malodor, or lymphangitic streaking. MINIMAL tenderness @ right lateral malleolus. No tenderness @ right medial malleolus. Onychomycosis of all 5 toenails of right foot. Skin: Positive chronic (e.g., ~2 years long) exanthem involving left 3rd toe with erythema, edema, induration, warmth, tenderness of entire left 3rd toe with complete avulsion of left 3rd nail plate. Granulation tissue covers entire toe pad of left 3rd toe. No tenderness @ left lateral/medial malleoli. Onychomycosis of all 4 remaining toenails of left foot. Neuro: Awake and oriented in regards to person, place, time, and situation. DTR+. 5/5 motor strength in all 4 extremities, both proximally and distally. No myoclonus or tics or tremors. Genito-urinary: No urethral discharge. No juarez catheter. Texan condom catheter in situ. Bilateral nephrostomies in situ. Results & Data Results & Data Vital Signs (Past 12 Hours) Vital Signs Temp Pulse Resp BP Pulse Ox O2 Del Method O2 Del Method 01/12/25 09:40 Room Air 01/12/25 08:00 Room Air 01/12/25 07:39 36.4 C L 59 L 18 129/72 96 Room Air Diagnostic Findings WBC 9.84, N76 L 9 M10 E4, Hb 11.6, MCV 89.3, MCHC 33.1, platelet 173 (01/11/2025, 2:28pm). WBC 6.57, N64 L18 M11 E5 B1, Hb 10.0, MCV 90.2, MCHC 33.0, platelet 153 (01/12/2025, 6:12am). Na 132, K 4.0, BUN 17, creatinine 0.67, glucose 89, Ca 9.1, albumin 3.3, AST 37, ALT 28, ALK PHOS 135, TBili 0.6 (01/11/2025, 2:28pm). Na 134, K 4.0, BUN 15, creatinine 0.70, glucose 105, Ca 7.9, albumin 2.8, AST 24, ALT 23, ALK PHOS 109, TBili 0.3 (01/12/2025, 6:12am). CRP #1 17.61 mg/dL (01/11/2025, 2:28pm). CRP #2 (01/12/2025, 6:46pm). ESR 96 mm/hr (01/11/2025, 2:28pm). ESR (01/12/2025, 6:46pm). Right foot wound/ulcer culture (01/11/2025, 10:37pm): Streptococcus dysgalactiae Blood culture #1 (01/11/2025, 10:55pm): Blood culture #2 (01/11/2025, 10:57pm): U/A (01/12/2025,12:44am): LE-, nitrite- Medications Administered CT right foot with IV contrast (01/11/2025, 6:04pm): 1. Diffuse leg and ankle subcutaneous and skin changes as described, likely an inflammatory condition (as cellulitis) for clinical and laboratory correlation. 2. Tibiotalar, tibiofibular, and talofibular arthritic changes, 3. 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 4. Mild arthritic changes affecting the intertarsal joints. 5. Mild ankle joint effusions. 6. A few calcifications along the posterior aspect of the calcaneus along the Achilles tendon, features of tenosynovitis. X-ray left foot, 3 views (01/11/2025, 6:04pm): 1. New changes favoring acute osteomyelitis of tip of distal phalanx of 3rd toe with surrounding soft tissue swelling. Clinical and lab correlation is suggested. 2. Stable prominent hallux valgus and osteoarthritic changes. Possible new intra-articular loose body along anterior compartment of ankle joint. X-ray right foot, 3 views (01/12/2025, 10:30am): 1. No evidence of osteomyelitis seen. 2. Small soft tissue foreign body as described. PG Care Time/CCT Total # of Minutes Spent Total Time Spent with Patient: Total time spent is greater than 50% in coordination of care (as documented) at patient's floor/unit and/or counseling patient: Coding Level of Care Code 19172 SUB INP/OBS CARE 3/50MIN Diagnoses Toe osteomyelitis, left M86.9 Cellulitis of right foot L03.115 Acute hyponatremia E87.1 Alcohol use F10.90
[2025-01-12] MEDS: ENOXAPARIN INJ 40 MG/0.4 ML SYR SQ SCH (21:24)
[2025-01-13] MEDS: cefTRIAXone SODIUM 2,000 MG/50 ML BAG IV SCH (00:21)
[2025-01-13] MEDS ORDERED: DEXAMETHASONE SOD INJ 4 MG/ML VIAL ONE (06:43)
[2025-01-13] MEDS ORDERED: ONDANSETRON INJ 2 MG/ML 2 ML VIAL ONE (06:43)
[2025-01-13] MEDS ORDERED: PROPOFOL IV EMULSION 10 MG/ML 20 ML VIAL IV ONE (06:43)
[2025-01-13] MEDS ORDERED: MIDAZOLAM HCL 1 MG/ML 2ML VIAL ONE (06:43)
[2025-01-13] MEDS: LACTATED RINGER'S 1,000 ML IV SCH (06:49)
--- NOTE | 2025-01-13 07:07 | History & Physical Bridge Note ---
Date of Service January 13, 2025 History & Physical Bridge Note I have examined the patient, reviewed the History & Physical and in the interval since the performance of the History & Physical I have noted the following changes of clinical significance: no changes noted Reviewed written informed consent with patient outlining plan for left third digit amputation. Discussed risks, benefits, alternatives, risks to the alternatives at length with patient and all questions were answered. Written informed consent reviewed and signed by patient and witnessed.
[2025-01-13 07:09] LABS: Hematocrit (blood only) 31.2 % (42.0-52.0); Hemoglobin 9.8 g/dl (14.0-18.0); Immature Granulocytes # (auto) 0.09 K/uL (0.01-0.20); Immature Granulocytes % (auto) 1.7 %; Mean Corpuscular Hemoglobin 29.2 pg (25.0-34.0); Mean Corpuscular Volume 92.9 fL (80.0-100.0); Platelet Count 153 K/uL (130-400); RDW Standard Deviation 49.7 fL (36.4-46.3); Red Blood Count 3.36 M/uL (4.70-6.10); White Blood Count 5.45 K/ul (4.8-10.8)
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
--- NOTE | 2025-01-13 07:14 | Operative Report ---
PG Post Operative Report Pre & Post Diagnosis Operation Date: 01/13/25 07:15 Osteomyelitis left third toe I identified the patient and participated in the time-out.: Yes Procedure Operation Date: 01/13/25 07:15 Amputation left third toe Surgeon Maximiliano Maciel DPM Making Department Preparer None Estimated Blood Loss 5 Findings Consistent with Post-Op Diagnosis Specimens Pathology: Proximal margin bone proximal phalanx left third toe. Cut and of bone represents proximal margin Pathology: Left third toe for pathology Microbiology: Bone for culture distal phalanx left third toe Complications None Indications Osteomyelitis left third toe Description of Procedure Patient brought in the operating room placed on the operating table in supine position. Following IV sedation local anesthesia obtained about the patient's left third ray utilizing a total of 10 cc of one-to-one mixture of half percent Marcaine. Timeout is held confirming correct patient, side, site, procedure with all necessary parties confirming. A well-padded nonsterile ankle tourniquet is placed about the patient's left ankle utilizing adequate cast padding to protect soft tissues. Left lower extremity is scrubbed prepped and draped in the usual aseptic fashion to the level ankle tourniquet. Tourniquet is inflated to 250 mmHg. Attention is directed to the patient's left third toe which is noted to be edematous and erythematous distally with open ulceration which probes directly to bone of the distal phalanx. A teardrop shaped incision was planned about the base of the third digit of the left foot preserving adequate viable appearing soft tissue for attempted primary closure. 15 blade is lysed. An incision which is carried deep to the level of bone of the proximal phalanx. Digit is disarticulated at the proximal interphalangeal joint passed from the operative field. Wound is flushed with copious amounts normal sterile saline. Clean instruments were used to free soft tissue about the proximal one third of the dorsal medial and laterally. Sagittal saw was utilized to cut the proximal phalanx of the proximal one third of the shaft from dorsal to plantar perpendicular long axis of the bone. The distal aspect of the proximal phalanx was placed in a blue top vessel to be sent to pathology evaluation proximal margin. Wound was flushed with copious amounts normal sterile saline. Tourniquet is released at 3 minutes total tourniquet time and a prompt hyperemic response is noted to the left foot. Wound is again flushed and electrocautery is used to achieve hemostasis to the wound bed. 1 Vicryl suture is utilized to reapproximate soft tissues over the cut end of the proximal phalanx. Remainder of the wound is closed with 4-0 nylon suture in simple interrupted suturing fashion. Patient tolerated the procedure and anesthesia well. Transferred recovery room with vital signs stable and vascular status intact to all remaining digits of the left foot. Following a brief period of postoperative monitoring recovery room patient was transferred back to his bed on the floor for ongoing monitoring, medical management and IV antibiotics. Plan: Weight bearing status: foot flat weightbearing in postop shoe left lower extremity Wound care: Will change surgical dressing postop day 1. Continue dressing change to right foot once daily with Aquacel Ag and a dry sterile dressing VTE Prophylaxis: okay from podiatry standpoint Antibiotics: broad-spectrum per medicine Pain Control: Multimodal Discharge Plan: pending clinical course Follow-up: Patient will follow-up with myself in wound center in 2 weeks for continued wound care of the right foot and suture removal left foot. I attest to the content of the Intraoperative Record and any orders documented therein. Any exceptions are noted below.
[2025-01-13] MEDS ORDERED: KETAMINE HCL 10MG/ML SYR ONE (07:17)
[2025-01-13] MEDS ORDERED: PROPOFOL IV EMULSION 10 MG/ML 100 ML VIAL IV ONE (07:23)
[2025-01-13] MEDS ORDERED: NALOXONE HCL 0.4 MG/1 ML VIAL/CARP IV PRN (07:27)
[2025-01-13] MEDS ORDERED: PROMETHAZINE HCL 6.25 MG in SODIUM CHLORIDE 0.9% 50 ML IV PRN (07:27)
[2025-01-13] MEDS ORDERED: FLUMAZENIL 0.1 MG/1 ML 10 ML VIAL IV PRN (07:27)
[2025-01-13] MEDS ORDERED: ATROPINE SULFATE 0.1 MG/ML 10ML SYR IV PRN (07:27)
[2025-01-13] MEDS ORDERED: ONDANSETRON INJ 2 MG/ML 2 ML VIAL IV PRN (07:27)
[2025-01-13 07:29] LABS: Alanine Aminotransferase 20.0 U/L (7-52); Albumin Globulin Ratio 0.8 (0.9-2); Alkaline Phosphatase 103.0 U/L (34-104); Anion Gap 4.0 (3-11); Bilirubin,Total 0.3 mg/dl (0.2-1.0); Blood Urea Nitrogen 10.0 mg/dl (6-23); Calcium 7.9 mg/dl (8.6-10.3); Carbon Dioxide 27.0 mmol/L (21-32); Chloride 103.0 mmol/L (98-107); Creatinine Clr Calc Pharmacy 141.5 ml/min; Globulin 3.7 gm/dl (2.5-4.0); Glucose 89.0 mg/dl (70-99(Fasting)); Potassium 4.2 mmol/L (3.5-5.1); Sodium 134.0 mmol/L (136-145); Total Protein 6.7 gm/dl (6.0-8.3)
--- NOTE | 2025-01-13 07:55 | Post Operative Brief Note ---
PG Immediate Post Op with CF Date of Surgery January 13, 2025 Pre & Post Diagnosis Operation Date: 01/13/25 07:15 osteomyelitis left 3rd toe I identified the patient and participated in the time-out.: Yes Procedure Operation Date: 01/13/25 07:15 amputation left 3rd toe Surgeon Maximiliano Maciel DPM Forder Operator none Estimated Blood Loss 5 Findings Consistent with Post-Op Diagnosis Specimens Specimen Description: A. Left Third Toe B. Proximal Margin Left Third Toe Culture 1. Left Third Toe Culture 2. Distal Phalanx Left Third Toe Anesthesia Type MAC Complications none
[2025-01-13] MEDS: BUPIVACAINE 0.5 % 5 MG/1 ML MPF 30ML VIAL ONE (08:02)
--- NOTE | 2025-01-13 08:35 | Anesthesiology Progress Note ---
Date of Service January 13, 2025 Anesthesia Post Procedure Vital Signs Vital Signs: Temp Pulse Pulse Resp BP BP Pulse Ox 01/13/25 08:20 36.5 C 66 12 128/73 96 01/13/25 08:10 52 L 13 115/78 95 01/13/25 08:00 36.2 C L 66 12 119/76 99 01/13/25 06:29 36.5 C 66 20 149/93 H 99 01/12/25 20:21 36.5 C 60 18 121/77 97 01/12/25 15:00 36.9 C 64 16 121/76 99 01/12/25 09:40 O2 Del Method O2 Flow Rate 01/13/25 08:20 Room Air 01/13/25 08:10 Room Air 01/13/25 08:00 Oxymask 5 01/13/25 06:29 Room Air 01/12/25 20:21 Room Air 01/12/25 15:00 Room Air 01/12/25 09:40 Room Air Pain Intensity Bilateral Foot: Pain Intensity: 5 Transfer of Care Handoff Completed per policy Notes Mental Status: alert / awake / arousable Patient Amnestic to Procedure: Yes Nausea / Vomiting: adequately controlled Pain: adequately controlled Airway Patency, RR, SpO2: stable & adequate BP & HR: stable & adequate Hydration State: stable & adequate Anesthetic Complications: no major complications apparent
[2025-01-13] MEDS: VANCOMYCIN LEVEL ONE (08:43)
--- NOTE | 2025-01-13 08:55 | Pharmacy Report ---
Pharmacy PK ABX Note - Date of Service January 13, 2025 - Assessment and Plan Assessment 01/13: Reviewed vancomycin level this AM, regimen predicting slightly supratherapeutic AUC/JT, will reduce dosing starting with tonight's dose. Right foot culture growing streptococcus dysgalactiae (final sensitivities pending). 01/12: 59 year old M receiving vancomycin and rocephin for left foot osteomyelitis. Blood cultures and foot culture pending. Plan Vancomycin * Loading dose: 1750 mg IV x 1 * Maintenance dose: decrease to vancomycin 1500 mg IV every 12 hours * Regimen is predicted to achieve target AUC/JT of 400-600 mg/L.hr * Level ordered for 01/15/25 with AM labs. Pharmacy will continue to follow and will adjust dose/frequency as necessary. Thank you. Pharmacy has transitioned to AUC monitoring for vancomycin. AUC/JT is the preferred PK/PD target and is associated with decreased risk of nephrotoxicity compared to traditional trough targets.
[2025-01-13] MEDS: DOCUSATE SODIUM 100 MG CAP PO PRN (09:08)
--- NOTE | 2025-01-13 19:49 | Hospitalist Progress Note ---
Date of Service January 13, 2025 Assessment & Plan (1) Toe osteomyelitis, left: Plan: s/p empiric vancomycin 1.75g IV x 1 dose (01/12/2025, 12:22am), ceftriaxone 2g IV x 1 dose (01/12/2025, 1:37am) in [facility]. Continue empiric vancomycin 1.75g IV q12 (day #1 on 01/12/2025, 9:36am) and ceftriaxone 2g IV daily (day #1 on 01/12/2025, 10:30pm) even after patient underwent definitive intervention/treatment of acute left 3rd toe tip osteomyelitis, namely, left 3rd toe amputation (01/13/2025, 7:15am, [facility] Podiatric Surgeon Dr. Maximiliano Maciel). (2) Cellulitis of right foot: Plan: s/p empiric vancomycin 1.75g IV x 1 dose (01/12/2025, 12:22am), ceftriaxone 2g IV x 1 dose (01/12/2025, 1:37am) in [facility]. Continue empiric vancomycin 1.75g IV q12 (day #1 on 01/12/2025, 9:36am) and ceftriaxone 2g IV daily (day #1 on 01/12/2025, 10:30pm). Check vitals, right foot exam, WBC, ESR, and CRP in the 01/14/2025 am. (3) Acute hyponatremia: Plan: cf., Na 132 mmol/L (01/11/2025, 2:28pm). cf., Na 134 mmol/L (01/12/2025, 6:12am). cf., Na 134 mmol/L (01/13/2025, 6:48am). cf., chronic hypovolemic hyponatremia with baseline Na range, 124 mmol/L (02/07/2023, 9:33am) to 133 mmol/L (02/09/2023, 6:47am). Etiology of chronic, NOT ACUTE, hypovolemic hyponatremia is most probably due to chronic ETOH abuse, which in turn, leads to chronic ETOH-mediated natri-uresis. Patient remains asymptomatic with this mild degree of chronic, NOT ACUTE, hypovolemic hyponatremia. Hence, I have opted to observe this laboratory anomaly while patient remains in [facility]. (4) Alcohol use: Plan: Patient concedes to drinking whisky and beer on an alternating, daily basis. Patient has no stigmata (e.g., tachycardia, tachypnea, diaphoresis, agitation, anxiety, panic, tremors, etc.) of acute ETOH withdrawal on 01/12/2025. Continue CIWA scale scoring and lorazepam 1mg IV q1 prn CIWA score 6-10. Plan Patient is a 59-year-old male with past medical history of alcohol use, GERD, HTN, depression, cellulitis requiring admission in 2022. Patient presented due to bilateral foot pain and was found to have left foot osteomyelitis of his distal phalanx of the third toe. He is being admitted for IV antibiotics. #left foot osteomyelitis left foot XR showed osteomyelitis of distal phalanx of third toe. Nonseptic at time of admission; no leukocytosis, VSS, afebrile. patient denies any trauma to the area however does endorse mild neuropathy. No history of DM. Wound (of right foot as no place of culture of left) and blood cultures ordered Will cover with Rocephin and vancomycin - No previous positive cultures on file, no significant risk factors Podiatry consulted Wound care consulted Daily wound care - ordered esr, crp, procal Trend CBC #Right foot cellulitis right foot CT revealed no signs of osteomyelitis however skin changes suggestive of cellulitis. Daily wound care Antibiotics as above #Hyponatremia/alcohol use - Typically drinks 4-6 beers per day. NA 132 at time of admission, improved from baseline. No symptoms of withdrawal on admission. - AWSS at risk protocol with IV Ativan as needed - Thiamine IV 100mg and folic acid 1mg IV QAM; received thiamine 500 Mg IV and folic acid 1 Mg IV at time of admission Daily multivitamin - avoid IVF and defer fluid restriction given sodium improved from baseline Trend BMP #HTNcontinue atenolol #GERDcontinue PPI VTE ppx: SCDs, low risk Dispo: med surg Admission and Anticipated Discharge Date Admission Date: January 11, 2025 Subjective "I feel a lot better than yesterday (01/12/2025). The antibiotics are working. They chopped off my left 3rd toe this morning. I feel fine. Probably go home in 1 or 2 days, right?" Review of Systems Review of Systems: see HPI Constitutional: Negative for antecedent/coincident fevers, chills, diaphoresis, cough, wheeze, sore throat, hemoptysis, chest pains, palpitations, pleurisy, nausea, vomiting, diarrhea, abdominal pain, pelvic pain, hematemesis, hematochezia, melena, hematuria, dysuria, frequency, urgency, headaches, dizziness, lightheadedness, visual changes, hearing changes, weakness, falls, syncope, trauma, travel history, sick contacts, or food/drug ingestions novel or new. All other review of systems are reported as negative by the patient on 01/13/2025. Physical Exam Constitutional: General: Comfortable, coherent, and cooperative. Not confused, obtunded, or lethargic. Patient speaks with regular radha, and in complete, fluent, and articulate 7-9 word sentences without pause, interruption, cough, or wheeze with O2 sat 95% on room air (01/13/2025, 4:17pm). HEENT: Normocephalic, atraumatic. No nystagmus, gaze paresis, anisocoria, miosis, mydriasis, hyphema, scleral injection, conjunctivitis, or pterygium. No otorrhea or rhinorrhea. No pharyngeal erythema, edema, or discharge. Neck: Supple, no stridor, bruit, goiter, or hepato-jugular reflux. Jugular venous pressure is estimated to be 3 cm above the sternal angle of Hair, which in turn, is 5 cm above the level of the right atrium; with jugular venous pressure estimated to be 8 cm, then, there is no jugular venous distention on 01/13/2025. Lymphatics: No cervical (anterior/posterior), supraclavicular, infraclavicular, axillary, epitrochlear, or inguinal adenopathy. Chest: Symmetric rise and fall with respirations. Non-tender to palpation. Lungs: Clear to auscultation and percussion. Heart: Regular rate and rhythm. S1 and S2 noted. No S3 or S4 sum mation gallop. No tripartite friction rub. Grade II/ early systolic murmur @ LLSB without radiation to the carotids, axilla, or back, and which remains invariant in regards to the respiratory cycle. Abdomen: Soft, non-tender, non-distended. No rebound, guarding, John's sign, or organomegaly. Bowel sounds auscultated in all 4 quadrants. Extremities: No clubbing, cyanosis, or edema. Skin: No decubitus ulcer or enanthem. Skin: Positive acute (e.g., ~2 weeks long) exanthem involving the right foot (e.g., dorsum of right foot, lateral sole with ruptured bulla (with sero-sanguineous drainage, no suppuration) on edge of right 5th metatarsophalanx on a deeply erythematous, warm, minimally tender base without induration, crepitus, fluctuance, malodor, or lymphangitic streaking. MINIMAL tenderness @ right lateral malleolus. No tenderness @ right medial malleolus. Onychomycosis of all 5 toenails of right foot. Skin: Positive chronic (e.g., ~2 years long) exanthem involving left 3rd toe with erythema, edema, induration, warmth, tenderness of entire left 3rd toe with complete avulsion of left 3rd nail plate. Granulation tissue covers entire toe pad of left 3rd toe. No tenderness @ left lateral/medial malleoli. Onychomycosis of all 4 remaining toenails of left foot. Neuro: Awake and oriented in regards to person, place, time, and situation. DTR+. 5/5 motor strength in all 4 extremities, both proximally and distally. No myoclonus or tics or tremors. Genito-urinary: No urethral discharge. No juarez catheter. Texan condom catheter in situ. Bilateral nephrostomies in situ. Results & Data Results & Data Vital Signs (Past 12 Hours) Vital Signs Temp Pulse Resp BP BP Pulse Ox O2 Del Method 01/13/25 16:17 36.5 C 64 18 146/78 H 95 Room Air 01/13/25 11:55 36.4 C L 58 L 16 131/79 95 Room Air 01/13/25 10:51 36.5 C 54 L 17 132/78 96 Room Air 01/13/25 09:48 36.5 C 74 16 149/94 H 97 Room Air 01/13/25 09:15 66 16 153/86 H 98 Room Air 01/13/25 08:20 36.5 C 66 12 128/73 96 Room Air 01/13/25 08:10 52 L 13 115/78 95 Room Air 01/13/25 08:00 36.2 C L 66 12 119/76 99 Oxymask O2 Flow Rate 01/13/25 16:17 01/13/25 11:55 01/13/25 10:51 01/13/25 09:48 01/13/25 09:15 01/13/25 08:20 01/13/25 08:10 01/13/25 08:00 5 Laboratory Results WBC 9.84, N76 L 9 M10 E4, Hb 11.6, MCV 89.3, MCHC 33.1, platelet 173 (01/11/2025, 2:28pm). WBC 6.57, N64 L18 M11 E5 B1, Hb 10.0, MCV 90.2, MCHC 33.0, platelet 153 (01/12/2025, 6:12am). WBC 5.45, N65 L20 M 9 E5 B1, Hb 9.8, MCV 92.9, MCHC 31.4, platelet 153 (01/13/2025, 6:48am). Na 132, K 4.0, BUN 17, creatinine 0.67, glucose 89, Ca 9.1, albumin 3.3, AST 37, ALT 28, ALK PHOS 135, TBili 0.6 (01/11/2025, 2:28pm). Na 134, K 4.0, BUN 15, creatinine 0.70, glucose 105, Ca 7.9, albumin 2.8, AST 24, ALT 23, ALK PHOS 109, TBili 0.3 (01/12/2025, 6:12am). Na 134, K 4.2, BUN 10, creatinine 0.70, glucose 89, Ca 7.9, albumin 3.0, AST 17, ALT 20, ALK PHOS 103, TBili 0.3 (01/13/2025, 6:48am). CRP #1 17.61 mg/dL (01/11/2025, 2:28pm). CRP #2 12.74 mg/dL (01/12/2025, 6:12am). CRP #3 8.48 mg/dL (01/13/2025, 6:48am). ESR #1 96 mm/hr (01/11/2025, 2:28pm). ESR #2 71 mm/hr (01/12/2025, 6:12am). ESR #3 76 mm/hr (01/13/2025, 6:48am). Right foot wound/ulcer culture (01/11/2025, 10:37pm): Streptococcus dysgalactiae, Staphylcococus aureus Right foot wound/ulcer culture (01/12/2025, 12:14pm): Streptococcus dysgalactiae, Staphylcococus aureus Blood culture #1 (01/11/2025, 10:55pm): Blood culture #2 (01/11/2025, 10:57pm): U/A (01/12/2025,12:44am): LE-, nitrite- Diagnostic Findings CT right foot with IV contrast (01/11/2025, 6:04pm): 1. Diffuse leg and ankle subcutaneous and skin changes as described, likely an inflammatory condition (as cellulitis) for clinical and laboratory correlation. 2. Tibiotalar, tibiofibular, and talofibular arthritic changes, 3. 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 4. Mild arthritic changes affecting the intertarsal joints. 5. Mild ankle joint effusions. 6. A few calcifications along the posterior aspect of the calcaneus along the Achilles tendon, features of tenosynovitis. X-ray left foot, 3 views (01/11/2025, 6:04pm): 1. New changes favoring acute osteomyelitis of tip of distal phalanx of 3rd toe with surrounding soft tissue swelling. Clinical and lab correlation is suggested. 2. Stable prominent hallux valgus and osteoarthritic changes. Possible new intra-articular loose body along anterior compartment of ankle joint. X-ray right foot, 3 views (01/12/2025, 10:30am): 1. No evidence of osteomyelitis seen. 2. Small soft tissue foreign body as described. PG Care Time/CCT Total # of Minutes Spent Total Time Spent with Patient: Total time spent is greater than 50% in coordination of care (as documented) at patient's floor/unit and/or counseling patient: Coding Level of Care Code 09250 SUB INP/OBS CARE 50MIN Diagnoses Toe osteomyelitis, left M86.9 Cellulitis of right foot L03.115 Acute hyponatremia E87.1 Alcohol use F10.90
[2025-01-13] MEDS: VANCOMYCIN HCL 1,500 MG in SODIUM CHLORIDE 0.9% 500 ML IV SCH (21:38)
[2025-01-14 07:14] LABS: Hematocrit (blood only) 32.3 % (42.0-52.0); Hemoglobin 10.5 g/dl (14.0-18.0); Immature Granulocytes # (auto) 0.07 K/uL (0.01-0.20); Immature Granulocytes % (auto) 1.0 %; Mean Corpuscular Hemoglobin 30.1 pg (25.0-34.0); Mean Corpuscular Volume 92.6 fL (80.0-100.0); Platelet Count 169 K/uL (130-400); RDW Standard Deviation 49.7 fL (36.4-46.3); Red Blood Count 3.49 M/uL (4.70-6.10); White Blood Count 7.19 K/ul (4.8-10.8)
[2025-01-14 07:37] LABS: Anion Gap 4.0 (3-11); Blood Urea Nitrogen 9.0 mg/dl (6-23); Calcium 8.4 mg/dl (8.6-10.3); Carbon Dioxide 29.0 mmol/L (21-32); Chloride 100.0 mmol/L (98-107); Creatinine Clr Calc Pharmacy 133.9 ml/min; Glucose 82.0 mg/dl (70-99(Fasting)); Potassium 4.5 mmol/L (3.5-5.1); Sodium 133.0 mmol/L (136-145)
--- NOTE | 2025-01-14 09:04 | Podiatry Progress Note ---
Date of Service January 14, 2025 Assessment & Plan (1) Ulcer of right foot with fat layer exposed: (2) Cellulitis of right foot: (3) Status post amputation of toe of left foot: Plan Postop day 1 status post left third toe amputation on 01/13/2025. Surgical dressing changed and replaced with dry gauze dressing and Joshua bandage to hold dressings in place. - Culture right foot 01/12/2025: Growing Staph aureus and strep dysgalactiae. Sensitivities pending - X-ray of the right foot reviewed with small foreign body along the medial foot. No open wound in this location and no signs of local soft tissue infection. Patient's erythema and edema on the right foot are localized to the plantar lateral and dorsal foot wound. Weight bearing status: Okay to weight-bear as tolerated bilateral foot in postop shoes. Wound care: Order for once daily dressing change to the right foot with Aquacel Ag and a dry sterile dressing. VTE Prophylaxis: okay from podiatry standpoint Antibiotics: broad-spectrum per medicine Pain Control: Multimodal Discharge Plan: Would consider amputation of the digit surgical cure for osteomyelitis of the left third toe. Antibiotics okay to be adjusted to oral therapy for discharge following sensitivity results from culture on 01/12/2025. Patient will need to continue dressing changes to the right foot once daily with Aquacel Ag and a dry sterile dressing and dressing changed to the left foot every other day with a dry gauze dressing and Joshua bandage. Continue postop shoes at all times while ambulating with walker for stability. Follow-up: Patient should follow-up in the wound care center within 2 weeks of discharge. Admission and Anticipated Discharge Date Admission Date: January 11, 2025 Subjective Postop day 1 status post left third digit amputation with primary closure. Patient seen resting comfortably in hospital bed. Reports mild to moderate pain left foot since the time of operation is well-controlled on current multimodal pain management. Continued pain to the bilateral foot however pain of the right foot is now overshadowing left foot pain following the amputation. Reports weightbearing through bilateral foot in postop shoes without incident. Denies nausea vomiting fever chills. Review of Systems Review of Systems: Denies nausea vomiting fever chills. Reports bilateral foot pain Physical Exam Physical Exam: Const: Appears well developed and well nourished. No signs of acute distress present. CV: Extremities: No cyanosis or edema. Capillary refill time is less than 2 seconds all digits of the bilateral foot. Posterior tibial and dorsalis pedis pulses are palpable bilateral. Lymph: No palpable or visible regional lymphadenopathy. Neuro: Sensation intact to light touch in all areas of the foot and ankle. Diminished protective sensation of the distal toes and plantar metatarsal heads bilateral. Psych: Mood/Affect: Mood is normal. Affect is normal. Cognition: Orientation is intact to person, place and time. Focused lower extremity musculoskeletal exam: Leg: No pain with compression of the calf muscle. Ankles: Normal to inspection and palpation. No swelling bilaterally. No tenderness bilaterally.Motor strength is intact. Range of motion pain-free and unlimited. Feet: Ulceration #1: Right foot subfifth metatarsal head extending laterally to the dorsum of the foot. There is superficial necrotic tissue at the dorsal most aspect of the wound which is mechanically removed today with 4 x 4 gauze exposing some underlying healthy granular tissue and fibrotic tissue. Decreased erythema and edema to the right foot over the past 24 hours. Ulceration #2: Resolved through amputation of the left third digit. Amputation site with wound edges well-approximated all sutures intact. There is scant sanguinous drainage to the dressing with no active drainage evaluation. No erythema or edema to the amputation site. Results & Data Results & Data Vital Signs (Past 12 Hours) Vital Signs Temp Pulse Resp BP BP Pulse Ox O2 Del Method 01/14/25 08:35 76 18 94 Room Air 01/14/25 07:22 36.6 C 68 18 168/93 H 94 Room Air 01/14/25 03:00 36.6 C 63 18 168/89 H 97 Room Air 01/14/25 01:43 36.5 C 64 18 155/86 H 96 Room Air Coding Level of Care Code 57877 SUB INP/OBS CARE 2/35MIN Diagnoses Ulcer of right foot with fat layer exposed L97.512 Cellulitis of right foot L03.115 Status post amputation of toe of left foot Z89.422
[2025-01-14] MEDS: HYDROmorphone INJ 2 MG/ML SYR/VIAL IV STA (10:36)
[2025-01-14] MEDS: OPTIRAY 320 125ml IV ONE (12:14)
--- NOTE | 2025-01-14 12:39 | CT Scan Report ---
CT angio chest w con CLINICAL HISTORY: SOB; elevated D-dimer COMPARISON STUDY: None TECHNIQUE: Thin section helical axial CT of the chest were performed following 118 cc of Optiray 320 intravenously. Sagittal and coronal reconstructions were done. Total exam DLP 1058.83mGy*cm FINDINGS: There is no evidence of pulmonary embolism. There are small bilateral pleural effusions. Th ere is mediastinal and hilar lymphadenopathy. There is bibasilar compressive atelectasis adjacent to the fluid. There is a slight generalized increase in interstitial lung markings with no focal airspac e opacity. There is no pneumothorax. There is no aortic aneurysm. The heart is enlarged. There is no pericardial effusion. There are multiple bilateral old rib fractures present. In the upper abdomen, there is a slightly nodular liver contour raising the possibility of cirrhosis. IMPRESSION: No evidence of pulmonary embolism. Query mild CHF with small bilateral pleural effusions. Prominent mediastinal and hilar lymph nodes Slightly nodular liver surface contour suggesting cirrhosis. ACT 112: Negative or not required by law. Electronically signed by: Shira Zhao M.D. 01/14/2025 12:37 PM
[2025-01-14] MEDS: FUROSEMIDE 40 MG/4 ML VIAL IV ONE (14:25)
--- NOTE | 2025-01-14 17:13 | Discharge Summary ---
Discharge Summary Date of Service January 14, 2025 Principal Dx & Hospital Course #1 = Principal Diagnosis (1) Toe osteomyelitis, left: s/p empiric vancomycin 1.75g IV x 1 dose (01/12/2025, 12:22am), ceftriaxone 2g IV x 1 dose (01/12/2025, 1:37am) in [facility] ER. Patient received empiric vancomycin 1.75g IV q12 x 3 doses (01/12/2025, 9:36am; 01/12/2025, 9:23pm; 01/13/2025, 9:05am) and ceftriaxone 2g IV daily x 2 doses (01/12/2025, 10:30pm; 01/13/2025, 10:52pm) in [facility] Med-Surg bed #W360-1, after patient underwent definitive intervention/treatment of acute left 3rd toe tip osteomyelitis, namely, left 3rd toe amputation (01/13/2025, 7:15am, [facility] Podiatric Surgeon Dr. Maximiliano Maciel). Patient received empiric vancomycin 1.5g IV q12 x 2 doses (01/13/2025, 9:38pm; 01/14/2025, 8:34am) in [facility] Med-Surg bed #W360-1. Subsequently, right foot wound culture (01/11/2025, 10:37pm) yielded MRSA, Streptococcus dysgalactiae, and Peptoniphilus harei (gram positive anaerobic coccus). Subsequently, right foot wound culture (01/12/2025, 12:14pm) yielded MRSA, Streptococcus dysgalactiae, and Finegoldia magna (gram positive anaerobic coccus). Subsequently, patient was transitioned from vancomycin 1.5g IV q12 (last administered on 01/14/2025, 8:34am) and ceftriaxone 2g IV daily (last administered on 01/13/2025, 10:52pm) to: a. doxycycline 100mg PO q12 (day #1 of 40.5 on 01/14/2025, 8:34pm)(to cover MRSA, Streptococcus dysgalactiae). b. rifampin 100mg PO q12 (day #1 of 40.5 on 01/14/2025, 8:34pm)(to cover MRSA) c. augmentin 875/125mg PO q12 (day #1 of 40.5 on 01/14/2025, 8:34pm)(to cover Streptococcus dysgalactiae, Peptoniphilus harei, and Finegoldia magna). Of note, the last 2 microbes listed, Peptoniphilus harei and Finegoldia magna, are part of the normal microbiota in humans, but this patient is a diabetic, and hence, I consider this patient's immune system to be weak, compared to a non- diabetic individual, and hence, these 2 microbes may be considered opportunistic pathogens in this patient's right foot, if not his left 3rd toe. Patient tolerated all three oral antibiotics well. Patient was subsequently discharged back to his home on 01/14/2025 with electronic prescriptions for the 3 antibiotics above transmitted to his [facility] store [id number], [address] [place] [address] on 01/14/2025, prior to hospital discharge home on 01/14/2025: a. doxycycline 100mg PO q12, #80 capsules, each capsule 100mg (01/14/2025, 8:00am through 02/23/2025, 8:00pm), no refills. b. rifampin 100mg PO q12, #80 capsules, each capsule 100mg (01/14/2025, 8:00am through 02/23/2025, 8:00pm), no refills. c. augmentin 875/125mg PO q12, #80 tablets, each tablet 875/125mg (01/14/2025, 8:00am through 02/23/2025, 8:00pm), no refills. Patient was advised to eat food when taking all 3 antibiotics to minimize the potential for dyspepsia. Patient was also advised that rifampin will turn the color of his urine from yellow to red-orange, and that such color change in urine should not be construed as hematuria, and that such color change in urine will resolve once rifampin is no longer taken. Patient was also advised to take rifampin at the same time that he takes doxycycline and augmentin, in order to avoid the potential for microbial resistance to arise when rifampin is taken alone. Patient was also advised to follow up with his Podiatric Surgeon Dr. Maximiliano Maciel within 5-7 days of hospital discharge to discuss final results of his left third toe tip wound culture (01/13/2025, 7:40am) to see if the same 3 microbes discovered in his right food wound cultures (01/11/2025, 10:37pm; 01/12/2025, 12:14pm) are present in his left third toe tip wound culture (01/13/2025, 7:40 am). Patient was also advised to undergo weekly ESR, CRP, and WBC w/differential testing, either with his PCP Dr. Bennett Michele, or his Podiatric Surgeon Dr. Maximiliano Maciel. Patient reports that he will comply with all of the recommendations noted above. Of final note, patient received oxycodone immediate release 5-10mg PO q6 prn moderate-severe pain while in [facility]. Patient's [facility] store [id number], [address] [place] [address], subsequently received an electronic prescription for oxycodone immediate release 10mg PO q6 prn moderate-severe pain, #40 tablets, each tablet 5mg, no refills, on 01/14/2025, prior to patient being discharged back to his home on , 4:47pm. (2) Cellulitis of right foot: See bullet #1 above for details. (3) Acute hyponatremia: cf., Na 132 mmol/L (01/11/2025, 2:28pm). cf., Na 134 mmol/L (01/12/2025, 6:12am). cf., Na 134 mmol/L (01/13/2025, 6:48am). cf., Na 133 mmol/L (01/14/2025, 6:34am). cf., chronic hypovolemic hyponatremia with baseline Na range, 124 mmol/L (02/07/2023, 9:33am) to 133 mmol/L (02/09/2023, 6:47am). Etiology of chronic, NOT ACUTE, hypovolemic hyponatremia is most probably due to chronic ETOH abuse, which in turn, leads to chronic ETOH-mediated natri-uresis. Patient remains asymptomatic with this mild degree of chronic, NOT ACUTE, hypovolemic hyponatremia. Hence, I opted to observe this laboratory anomaly while patient remains in [facility]. (4) Alcohol use: Patient concedes to drinking whisky and beer on an alternating, daily basis. Patient has no stigmata (e.g., tachycardia, tachypnea, diaphoresis, agitation, anxiety, panic, tremors, etc.) of acute ETOH withdrawal on 01/12/2025. Continue CIWA scale scoring and lorazepam 1mg IV q1 prn CIWA score 6-10. (5) Acute diastolic CHF (congestive heart failure): Patient reported mild, acute onset of shortness of breath, without cough, wheeze, pleurisy, chest pain, etc. on 01/14/2025, just prior to hospital discharge home. Patient subsequently underwent D-dimer testing (01/14/2025, 10:11am), which was elevated at 1,790 ug/L, perhaps non-specifically in the setting of left third toe amputation (01/13/2025, 7:15am, [facility] Podiatric Surgeon Dr. Maximiliano Maciel). Patient subsequently underwent CTA chest (01/14/2025, 11:19am), which was negative for acute PE, infiltrate/consolidation, but was positive for mild cardiomegaly and mild, small, bilateral pleural effusions. In comparison, there are no portable CXR or CT chest to compare against on the day that patient was admitted to [facility] on 01/11/2025. Instead, there is one portable CXR (02/07/2023) which showed no infiltrate, effusion, cardiomegaly, pulmonary vascular congestion, or pneumothorax. Hence, I surmise that patient has probably developed some non-ischemic, [id number] diastolic CHF / cardiomyopathy due to his chronic, ongoing ETOH abuse. Hence, I did not order TTE while patient remained in [facility] as performing TTE while patient remained in [facility] would not change pharmacologic management, which involved administering lasix 80mg IV x 1 dose (01/14/2025, 2:25pm). Patient tolerated this medication well, and reports that his SOB/JANSEN has improved significantly. Hence, patient was discharged back to his home on 01/14/2025 with an electronic prescription for lasix 40mg PO bid, #10 tablets, no refills, transmitted to his [facility] store [id number], [address] [place] [address], on 01/14/2025, prior to patient being discharged back to his home on 01/14/2025, 4:47pm. Plan Patient is a 59-year-old male with past medical history of alcohol use, GERD, HTN, depression, cellulitis requiring admission in 2022. Patient presented due to bilateral foot pain and was found to have left foot osteomyelitis of his distal phalanx of the third toe. He is being admitted for IV antibiotics. #left foot osteomyelitis left foot XR showed osteomyelitis of distal phalanx of third toe. Nonseptic at time of admission; no leukocytosis, VSS, afebrile. patient denies any trauma to the area however does endorse mild neuropathy. No history of DM. Wound (of right foot as no place of culture of left) and blood cultures ordered Will cover with Rocephin and vancomycin - No previous positive cultures on file, no significant risk factors Podiatry consulted Wound care consulted Daily wound care - ordered esr, crp, procal Trend CBC #Right foot cellulitis right foot CT revealed no signs of osteomyelitis however skin changes suggestive of cellulitis. Daily wound care Antibiotics as above #Hyponatremia/alcohol use - Typically drinks 4-6 beers per day. NA 132 at time of admission, improved from baseline. No symptoms of withdrawal on admission. - AWSS at risk protocol with IV Ativan as needed - Thiamine IV 100mg and folic acid 1mg IV QAM; received thiamine 500 Mg IV and folic acid 1 Mg IV at time of admission Daily multivitamin - avoid IVF and defer fluid restriction given sodium improved from baseline Trend BMP #HTNcontinue atenolol #GERDcontinue PPI VTE ppx: SCDs, low risk Dispo: med surg Admission HPI Per Admitting Provider Patient is a 59-year-old male with past medical history of alcohol use, GERD, HTN, depression, cellulitis requiring admission in 2022. Patient presented due to bilateral foot pain and was found to have left foot osteomyelitis of his dis law phalanx of the third toe. He is being admitted for IV antibiotics. Patient seen at bedside. He stated that he has had bilateral foot wounds since the winter with clear drainage that have been worsening for the past few days. He previously followed with podiatry stating he saw them every few weeks, last visit was approximately 1 month ago; with Dr. Osborn. Denies any recent wound care visits. Patient stated he has had no increase in drainage over the past few days however has had increase in pain, 7/10 at baseline and intermittent; currently 7/10 at bedside. He denies any fevers, chills, night sweats, chest pain, shortness of breath, abdominal pain, nausea, vomiting, diarrhea. Denies any trauma to the area however does endorse mild neuropathy, denies history of diabetes. He has been able to ambulate without difficulty however does endorse pain with ambulation. He endorses occasionally smoking a cigar and drinking approximately 4-6 beers per day. He does not use any oxygen at baseline. He did take all of his home medications today. He wishes to be full code. Of note patient reportedly arrived to the ED with zara pads and duct tape as shoes. Discharge Exam Constitutional General: Comfortable, coherent, and cooperative. Not confused, obtunded, or lethargic. Patient speaks with regular radha, and in complete, fluent, and articulate 7-9 word sentences without pause, interruption, cough, or wheeze with O2 sat 97% on room air (01/14/2025, 3:57pm). HEENT: Normocephalic, atraumatic. No nystagmus, gaze paresis, anisocoria, miosis, mydriasis, hyphema, scleral injection, conjunctivitis, or pterygium. No otorrhea or rhinorrhea. No pharyngeal erythema, edema, or discharge. Neck: Supple, no stridor, bruit, goiter, or hepato-jugular reflux. Jugular venous pressure is estimated to be 3 cm above the sternal angle of Hair, which in turn, is 5 cm above the level of the right atrium; with jugular venous pressure estimated to be 8 cm, then, there is no jugular venous distention on 01/14/2025. Lymphatics: No cervical (anterior/posterior), supraclavicular, infraclavicular, axillary, epitrochlear, or inguinal adenopathy. Chest: Symmetric rise and fall with respirations. Non-tender to palpation. Lungs: Clear to auscultation and percussion. Heart: Regular rate and rhythm. S1 and S2 noted. No S3 or S4 summation gallop. No tripartite friction rub. Grade II/ early systolic murmur @ LLSB without radiation to the carotids, axilla, or back, and which remains invariant in regards to the respiratory cycle. Abdomen: Soft, non-tender, non-distended. No rebound, guarding, John' s sign, or organomegaly. Bowel sounds auscultated in all 4 quadrants. Extremities: No clubbing, cyanosis, or edema. Skin: No decubitus ulcer or enanthem. Skin: Positive acute (e.g., ~2 weeks long) exanthem involving the right foot (e.g., dorsum of right foot, lateral sole with ruptured bulla (with sero-sanguineous drainage, no suppuration) on edge of right 5th metatarsophalanx on a deeply erythematous, warm, minimally tender base without induration, crepitus, fluctuance, malodor, or lymphangitic streaking. MINIMAL tenderness @ right lateral malleolus. No tenderness @ right medial malleolus. Onychomycosis of all 5 toenails of right foot. Skin: Positive chronic (e.g., ~2 years long) exanthem involving left 3rd toe with erythema, edema, induration, warmth, tenderness of entire left 3rd toe with complete avulsion of left 3rd nail plate. Granulation tissue covers entire toe pad of left 3rd toe. No tenderness @ left lateral/medial malleoli. Onychomycosis of all 4 remaining toenails of left foot. Neuro: Awake and oriented in regards to person, place, time, and situation. DTR+. 5/5 motor strength in all 4 extremities, both proximally and distally. No myoclonus or tics or tremors. Genito-urinary: No urethral discharge. No juarez catheter. Discharge Plan Discharge Items Patient Disposition: Home - Home Health Services Reason For Visit: LEFT FOOT OSTEOMYELITIS Discharge Diagnosis: 1. Left 3rd toe tip osteomyelitis, s/p left 3rd toe tip amputation (01/13/2025, 7:15am, [facility] Podiatric Surgeon Dr. Maximiliano Maciel) with left third toe tip culture (01/13/2025, 7:40am) pending. 2. Right foot cellulitis with right foot wound culture (01/12/2025, 12:14pm) positive for MRSA, Streptococcus dysgalactiae, and Peptoniphilus harei group. Condition on Discharge: Good Activity: Resume your previous activity Lifting: Gradually increase as tolerated Bathing: No limitations Sexual Activity: When tolerated Exercise/Sports: Gradually increase as tolerated Weightbearing: Full weightbearing Non-emergency contact: Primary Care Provider Call non-emergency contact if: you have any medication questions Follow-up/Referrals: Stella Lemus CRNP [Nurse Practitioner] - 01/18/25 1:00 pm (nurse appointment- wound care ) Darci Trujillo DO [Physician] - 01/25/25 8:00 am (new patient appointment) Diet: Heart Healthy Addtl Attending Provider Instructions: 1. See your PCP Dr. Darci Trujillo within 5-7 days of hospital discharge for routine, follow up visit for mild shortness of breath with CTA chest (01/14/2025, 11:19am) negative for acute PE, infiltrate/consolidation, positive for cardiomegaly with mild, small bilateral pleural effusions. 2. See your Wound Care Nurse NASH Small, within 5-7 days of hospital discharge for routine, follow up visit regarding right foot cellulitis. 3. See your Podiatric Surgeon Dr. Maximiliano Maciel, within 5-7 days of hospital discharge for routine, follow up visit and to discuss final results of left third toe tip wound culture (01/13/2025, 7:40am). Pending Studies at Discharge: Yes Studies:: 3. See your Podiatric Surgeon Dr. Maximiliano Maciel, within 5-7 days of hospital discharge for routine, follow up visit and to discuss final results of left third toe tip wound culture (01/13/2025, 7:40am). Stand-Alone Forms: Hotelements, Smoking Cessation Medications and DC Order Prescriptions: New amoxicillin-pot clavulanate 875-125 mg Tablet 1 tab PO Q12 Qty: 80 0RF Rx Instructions: Take augmentin 875mg - clavulanic acid 125mg PO q12 x 40 days (starting on 01/15/2025, 8:00am and stopping after 02/23/2025, 8:00pm dose) to treat acute left 3rd toe tip osteomyelitis. doxycycline hyclate 100 mg Capsule 100 mg PO Q12 Qty: 80 0RF Rx Instructions: Take doxycycline 100mg PO q12 x 40 days (starting on 01/15/2025, 8:00am and stopping after 02/23/2025, 8:00pm dose) to treat acute left 3rd toe tip osteomyelitis. rifampin 300 mg Capsule 300 mg PO Q12 Qty: 80 0RF Rx Instructions: Take rifampin 300mg PO q12 x 40 days (starting on 01/15/2025, 8:00am and stopping after 02/23/2025, 8:00pm dose) to treat acute left 3rd toe tip osteomyelitis. oxycodone 5 mg Tablet 10 mg PO Q6 PRN (Reason: pain after having left 3rd toe chopped off 01/13/25) Qty: 40 0RF furosemide [Lasix] 40 mg tablet 40 mg PO BID Qty: 10 0RF Continued omeprazole 20 mg Tablet,Delayed Release (Dr/Ec) 20 mg PO DAILY PRN (Reason: Acid Reflux) Qty: 0 atenolol 50 mg tablet 50 mg PO DAILY Discharge Orders: Discharge Order (Routine); Ordered 01/14/25 Ordered By: Robbi Hook Discharge Order- CHF (Routine); Ordered 01/14/25 Ordered By: Robbi Hook Admission Data Admit Date/Time: 01/11/25 21:59 Attending Provider: Robbi Hook Admit Provider: Pablo Gonzalez Primary Care Provider: Amadeo Michele Other Providers: Maximiliano Maciel; [place]; [facility] Hospital Stay Data Consultations 01/11/25 23:27 Consult Podiatry Routine Procedures Performed Operation Date: 01/13/25 07:15 Actual Procedures p Left 3rd Toe Amputation(Left) - Maximiliano Maciel DPM Diagnostic Imagining Performed 01/11/25 18:04 CT foot RT w con Stat 01/14/25 11:19 CTA chest w con [CT angio chest w con] Stat Pending Results Patient Have Any Pending Studies at Discharge: Yes Discharge Instructions Given to Patient (Per Discharging Provider) 1. See your PCP Dr. Darci Trujillo within 5-7 days of hospital discharge for routine, follow up visit for mild shortness of breath with CTA chest (01/14/2025, 11:19am) negative for acute PE, infiltrate/consolidation, positive for cardiomegaly with mild, small bilateral pleural effusions. 2. See your Wound Care Nurse NASH Small, within 5-7 days of hospital discharge for routine, follow up visit regarding right foot cellulitis. 3. See your Podiatric Surgeon Dr. Maximiliano Maciel, within 5-7 days of hospital discharge for routine, follow up visit and to discuss final results of left third toe tip wound culture (01/13/2025, 7:40am). Total Time Total Time Spent Total Time Spent (In Minutes): 35 minutes. Of this time period, 19 minutes were spent in coordinating patient's discharge. Coding Level of Care Code 57822 INP/OBS DISCH >30 MIN Diagnoses Toe osteomyelitis, left M86.9 Cellulitis of right foot L03.115 Acute hyponatremia E87.1 Alcohol use F10.90 Acute diastolic CHF (congestive heart failure) I50.31
[2025-01-14] MEDS: AMOXICILLIN/CLAVULANATE 875 MG TAB PO SCH (17:21)
[2025-01-14] MEDS: AMOXICILLIN/CLAVULANATE 875 MG TAB PO ONE (17:52)
[2025-01-14] MEDS: DOXYCYCLINE HYCLATE 100 MG CAP PO STA (17:59)
[2025-01-14] MEDS: DOXYCYCLINE HYCLATE 100 MG CAP PO SCH (18:17)
--- NOTE | 2025-01-15 07:59 | Discharge Summary ---
Discharge Summary Date of Service January 15, 2025 Principal Dx & Hospital Course #1 = Principal Diagnosis (1) Toe osteomyelitis, left: s/p empiric vancomycin 1.75g IV x 1 dose (01/12/2025, 12:22am), ceftriaxone 2g IV x 1 dose (01/12/2025, 1:37am) in [facility] ER. Patient received empiric vancomycin 1.75g IV q12 x 3 doses (01/12/2025, 9:36am; 01/12/2025, 9:23pm; 01/13/2025, 9:05am) and ceftriaxone 2g IV daily x 2 doses (01/12/2025, 10:30pm; 01/13/2025, 10:52pm) in [facility] Med-Surg bed #W360-1, after patient underwent definitive intervention/treatment of acute left 3rd toe tip osteomyelitis, namely, left 3rd toe amputation (01/13/2025, 7:15am, [facility] Podiatric Surgeon Dr. Maximiliano Maciel). Patient received empiric vancomycin 1.5g IV q12 x 2 doses (01/13/2025, 9:38pm; 01/14/2025, 8:34am) in [facility] Med-Surg bed #W360-1. Subsequently, right foot wound culture (01/11/2025, 10:37pm) yielded MRSA, Streptococcus dysgalactiae, and Peptoniphilus harei (gram positive anaerobic coccus). Subsequently, right foot wound culture (01/12/2025, 12:14pm) yielded MRSA, Streptococcus dysgalactiae, and Finegoldia magna (gram positive anaerobic coccus). Subsequently, patient was transitioned from vancomycin 1.5g IV q12 (last administered on 01/14/2025, 8:34am) and ceftriaxone 2g IV daily (last administered on 01/13/2025, 10:52pm) to: a. doxycycline 100mg PO q12 (day #1 of 40.5 on 01/14/2025, 8:34pm)(to cover MRSA, Streptococcus dysgalactiae). b. rifampin 100mg PO q12 (day #1 of 40.5 on 01/14/2025, 8:34pm)(to cover MRSA) c. augmentin 875/125mg PO q12 (day #1 of 40.5 on 01/14/2025, 8:34pm)(to cover Streptococcus dysgalactiae, Peptoniphilus harei, and Finegoldia magna). Of note, the last 2 microbes listed, Peptoniphilus harei and Finegoldia magna, are part of the normal microbiota in humans, but this patient is a diabetic, and hence, I consider this patient's immune system to be weak, compared to a non- diabetic individual, and hence, these 2 microbes may be considered opportunistic pathogens in this patient's right foot, if not his left 3rd toe, and should be treated with an antibiotic with anaerobic activity, such as augmentin. Patient subsequently tolerated all three oral antibiotics (doxycycline, rifampin, and augmentin) very well. Patient subsequently was discharged back to his home on 01/15/2025, 7:45am with electronic prescriptions for the 3 antibiotics above transmitted to his [facility] store [id number], [address] [place] [address] on 01/14/2025, 4:45pm, prior to hospital discharge home on 01/15/2025, 7:45am: a. doxycycline 100mg PO q12, #80 capsules, each capsule 100mg (01/14/2025, 8:00am through 02/23/2025, 8:00pm), no refills. b. rifampin 100mg PO q12, #80 capsules, each capsule 100mg (01/14/2025, 8:00am through 02/23/2025, 8:00pm), no refills. c. augmentin 875/125mg PO q12, #80 tablets, each tablet 875/125mg (01/14/2025, 8:00am through 02/23/2025, 8:00pm), no refills. Patient was advised to eat food when taking all 3 antibiotics to minimize the potential for dyspepsia. Patient was also advised that rifampin will turn the color of his urine from yellow to red-orange, and that such color change in urine should not be construed as hematuria, and that such color change in urine will resolve once rifampin is no longer taken. Patient was also advised to take rifampin at the same time that he takes doxycycline and augmentin, in order to avoid the potential for microbial resistance to arise when rifampin is taken alone. Patient was also advised to follow up with his Podiatric Surgeon Dr. Maximiliano Maciel within 5-7 days of hospital discharge to discuss final results of his left third toe tip wound culture (01/13/2025, 7:40am) to see if the same 3 microbes discovered in his right foot wound cultures (01/11/2025, 10:37pm; 01/12/2025, 12:14pm) are present in his left third toe tip wound culture (01/13/2025, 7:40am). Patient was also advised to undergo weekly ESR, CRP, and WBC w/differential testing, either with his PCP Dr. Bennett Michele, or his Podiatric Surgeon Dr. Maximiliano Maciel. Patient reports that he will comply with all of the recommendations noted above. Of final note, patient received oxycodone immediate release 5-10mg PO q6 prn moderate-severe pain while in [facility]. Patient's [facility] store #[id number], [address] [place] [address], subsequently received an electronic prescription for oxycodone immediate release 10mg PO q6 prn moderate-severe pain, #40 tablets, each tablet 5mg, no refills, on 01/14/2025, prior to patient being discharged back to his home on 01/15/2025, 7:45am. (2) Cellulitis of right foot: See bullet #1 above for details. (3) Acute hyponatremia: cf., Na 132 mmol/L (01/11/2025, 2:28pm). cf., Na 134 mmol/L (01/12/2025, 6:12am). cf., Na 134 mmol/L (01/13/2025, 6:48am). cf., Na 133 mmol/L (01/14/2025, 6:34am). cf., chronic hypovolemic hyponatremia with baseline Na range, 124 mmol/L (02/07/2023, 9:33am) to 133 mmol/L (02/09/2023, 6:47am). Etiology of chronic, NOT ACUTE, hypovolemic hyponatremia is most probably due to chronic ETOH abuse, which in turn, leads to chronic ETOH-mediated natri-uresis. Patient remains asymptomatic with this mild degree of chronic, NOT ACUTE, hypovolemic hyponatremia. Hence, I opted to observe this laboratory anomaly while patient remains in [facility]. (4) Alcohol use: Patient concedes to drinking whisky and beer on an alternating, daily basis. Patient had/has no stigmata (e.g., tachycardia, tachypnea, diaphoresis, agitation, anxiety, panic, tremors, etc.) of acute ETOH withdrawal while in [facility] from admission date 01/11/2025 through discharge date 01/15/2025. Patient received abstinence counselling for 16 minutes while in [facility]. Patient responded by saying "I am not an alcoholic. I can control my drinking." (5) Acute diastolic CHF (congestive heart failure): Patient reported mild, acute onset of shortness of breath, without cough, wheeze, pleurisy, chest pain, etc. on 01/14/2025, just prior to hospital discharge home. Patient subsequently underwent D-dimer testing (01/14/2025, 10:11am), which was elevated at 1,790 ug/L, perhaps non-specifically in the setting of left third toe amputation (01/13/2025, 7:15am, [facility] Podiatric Surg feli Dr. Maximiliano Maciel). Patient subsequently underwent CTA chest (01/14/2025, 11:19am), which was negative for acute PE, infiltrate/consolidation, but was positive for mild cardiomegaly and mild, small, bilateral pleural effusions. In comparison, there are no portable CXR or CT chest to compare against on the day that patient was admitted to [facility] on 01/11/2025. Instead, there is one portable CXR (02/07/2023) which showed no infiltrate, effusion, cardiomegaly, pulmonary vascular congestion, or pneumothorax. Hence, I surmise that patient had probably developed some non-ischemic, [id number] diastolic CHF / cardiomyopathy due to his chronic, ongoing ETOH abuse. Hence, I did not order TTE while patient remained in [facility] as performing TTE while patient remained in [facility] would not change pharmacologic management, which involved administering lasix 80mg IV x 1 dose (01/14/2025, 2:25pm). Patient tolerated this medication well, and reported that his SOB/JANSEN improved significantly. Hence, patient was discharged back to his home on 01/14/2025 with an electronic prescription for lasix 40mg PO bid, #10 tablets, no refills, transmitted to his [facility] store #[id number], [address] [place] [address], on 01/14/2025, 4:45pm, prior to patient being discharged back to his home on 01/15/2025, 7:45am. Plan Patient is a 59-year-old male with past medical history of alcohol use, GERD, HTN, depression, cellulitis requiring admission in 2022. Patient presented due to bilateral foot pain and was found to have left foot osteomyelitis of his distal phalanx of the third toe. He is being admitted for IV antibiotics. #left foot osteomyelitis left foot XR showed osteomyelitis of distal phalanx of third toe. Nonseptic at time of admission; no leukocytosis, VSS, afebrile. patient denies any trauma to the area however does endorse mild neuropathy. No history of DM. Wound (of right foot as no place of culture of left) and blood cultures ordered Will cover with Rocephin and vancomycin - No previous positive cultures on file, no significant risk factors Podiatry consulted Wound care consulted Daily wound care - ordered esr, crp, procal Trend CBC #Right foot cellulitis right foot CT revealed no signs of osteomyelitis however skin changes suggestive of cellulitis. Daily wound care Antibiotics as above #Hyponatremia/alcohol use - Typically drinks 4-6 beers per day. NA 132 at time of admission, improved from baseline. No symptoms of withdrawal on admission. - AWSS at risk protocol with IV Ativan as needed - Thiamine IV 100mg and folic acid 1mg IV QAM; received thiamine 500 Mg IV and folic acid 1 Mg IV at time of admission Daily multivitamin - avoid IVF and defer fluid restriction given sodium improved from baseline Trend BMP #HTNcontinue atenolol #GERDcontinue PPI VTE ppx: SCDs, low risk Dispo: med surg Admission HPI Per Admitting Provider Patient is a 59-year-old male with past medical history of alcohol use, GERD, HTN, depression, cellulitis requiring admission in 2022. Patient presented due to bilateral foot pain and was found to have left foot osteomyelitis of his distal phalanx of the third toe. He is being admitted for IV antibiotics. Patient seen at bedside. He stated that he has had bilateral foot wounds since the winter with clear drainage that have been worsening for the past few days. He previously followed with podiatry stating he saw them every few weeks, last visit was approximately 1 month ago; with Dr. Osborn. Denies any recent wound care visits. Patient stated he has had no increase in drainage over the past few days however has had increase in pain, 7/10 at baseline and intermittent; currently 7/10 at bedside. He denies any fevers, chills, night sweats, chest pain, shortness of breath, abdominal pain, nausea, vomiting, diarrhea. Denies any trauma to the area however does endorse mild neuropathy, denies history of diabetes. He has been able to ambulate without difficulty however does endorse pain with ambulation. He endorses occasionally smoking a cigar and drinking approximately 4-6 beers per day. He does not use any oxygen at baseline. He did take all of his home medications today. He wishes to be full code. Of note patient reportedly arrived to the ED with zara pads and duct tape as shoes. Discharge Exam Constitutional General: Comfortable, coherent, and cooperative. Not confused, obtunded, or lethargic. Patient speaks with regular radha, and in complete, fluent, and articulate 7-9 word sentences without pause, interruption, cough, or wheeze with O2 sat 96% on room air (01/15/2025, 8:01am). HEENT: Normocephalic, atraumatic. No nystagmus, gaze paresis, anisocoria, miosis, mydriasis, hyphema, scleral injection, conjunctivitis, or pterygium. No otorrhea or rhinorrhea. No pharyngeal erythema, edema, or discharge. Neck: Supple, no stridor, bruit, goiter, or hepato-jugular reflux. Jugular venous pressure is estimated to be 3 cm above the sternal angle of Hair, which in turn, is 5 cm above the level of the right atrium; with jugular venous pressure estimated to be 8 cm, then, there is no jugular venous distention on 01/15/2025. Lymphatics: No cervical (anterior/posterior), supraclavicular, infraclav icular, axillary, epitrochlear, or inguinal adenopathy. Chest: Symmetric rise and fall with respirations. Non-tender to palpation. Lungs: Clear to auscultation and percussion. Heart: Regular rate and rhythm. S1 and S2 noted. No S3 or S4 summation gallop. No tripartite friction rub. Grade II/ early systolic murmur @ LLSB without radiation to the carotids, axilla, or back, and which remains invariant in regards to the respiratory cycle. Abdomen: Soft, non-tender, non-distended. No rebound, guarding, John's sign, or organomegaly. Bowel sounds auscultated in all 4 quadrants. Extremities: No clubbing, cyanosis, or edema. Skin: No decubitus ulcer or enanthem. Skin: Positive acute (e.g., ~2 weeks long) exanthem involving the right foot (e.g., dorsum of right foot, lateral sole with ruptured bulla (with sero-sanguineous drainage, no suppuration) on edge of right 5th metatarsophalanx on a deeply erythematous, warm, minimally tender base without induration, crepitus, fluctuance, malodor, or lymphangitic streaking. MINIMAL tenderness @ right lateral malleolus. No tenderness @ right medial malleolus. Onychomycosis of all 5 toenails of right foot. Skin: Positive chronic (e.g., ~2 years long) exanthem involving left 3rd toe with erythema, edema, induration, warmth, tenderness of entire left 3rd toe with complete avulsion of left 3rd nail plate. Granulation tissue covers entire toe pad of left 3rd toe. No tenderness @ left lateral/medial malleoli. Onychomycosis of all 4 remaining toenails of left foot. Neuro: Awake and oriented in regards to person, place, time, and situation. DTR+. 5/5 motor strength in all 4 extremities, both proximally and distally. No myoclonus or tics or tremors. Genito-urinary: No urethral discharge. No juarez catheter. Discharge Plan Discharge Items Patient Disposition: Home - Home Health Services Reason For Visit: LEFT FOOT OSTEOMYELITIS Discharge Diagnosis: 1. Left 3rd toe tip osteomyelitis, s/p left 3rd toe tip amputation (01/13/2025, 7:15am, [facility] Podiatric Surgeon Dr. Maximiliano Maciel) with left third toe tip culture (01/13/2025, 7:40am) pending. 2. Right foot cellulitis with right foot wound culture (01/12/2025, 12:14pm) positive for MRSA, Streptococcus dysgalactiae, and Peptoniphilus harei group. Condition on Discharge: Good Activity: Resume your previous activity Lifting: Gradually increase as tolerated Bathing: No limitations Sexual Activity: When tolerated Exercise/Sports: Gradually increase as tolerated Weightbearing: Full weightbearing Non-emergency contact: Primary Care Provider Call non-emergency contact if: you have any medication questions Follow-up/Referrals: Stella Lemus CRNP [Nurse Practitioner] - 01/18/25 1:00 pm (nurse appointment- wound care ) Darci Trujillo DO [Physician] - 01/25/25 8:00 am (new patient appointment) Diet: Heart Healthy Addtl Attending Provider Instructions: 1. See your PCP Dr. Darci Trujillo within 5-7 days of hospital discharge for routine, follow up visit for mild shortness of breath with CTA chest (01/14/2025, 11:19am) negative for acute PE, infiltrate/consolidation, positive for cardiomegaly with mild, small bilateral pleural effusions. 2. See your Wound Care Nurse NASH Small, within 5-7 days of hospital discharge for routine, follow up visit regarding right foot cellulitis. 3. See your Podiatric Surgeon Dr. Maximiliano Maciel, within 5-7 days of hospital discharge for routine, follow up visit and to discuss final results of left third toe tip wound culture (01/13/2025, 7:40am). Pending Studies at Discharge: Yes Studies:: 3. See your Podiatric Surgeon Dr. Maximiliano Maciel, within 5-7 days of hospital discharge for routine, follow up visit and to discuss final results of left third toe tip wound culture (01/13/2025, 7:40am). Stand-Alone Forms: [facility] C[facility] Medications and DC Order Prescriptions: New amoxicillin-pot clavulanate 875-125 mg Tablet 1 tab PO Q12 Qty: 80 0RF Rx Instructions: Take augmentin 875mg - clavulanic acid 125mg PO q12 x 40 days (starting on 01/15/2025, 8:00am and stopping after 02/23/2025, 8:00pm dose) to treat acute left 3rd toe tip osteomyelitis. doxycycline hyclate 100 mg Capsule 100 mg PO Q12 Qty: 80 0RF Rx Instructions: Take doxycycline 100mg PO q12 x 40 days (starting on 01/15/2025, 8:00am and stopping after 02/23/2025, 8:00pm dose) to treat acute left 3rd toe tip osteomyelitis. rifampin 300 mg Capsule 300 mg PO Q12 Qty: 80 0RF Rx Instructions: Take rifampin 300mg PO q12 x 40 days (starting on 01/15/2025, 8:00am and stopping after 02/23/2025, 8:00pm dose) to treat acute left 3rd toe tip osteomyelitis. oxycodone 5 mg Tablet 10 mg PO Q6 PRN (Reason: pain after having left 3rd toe chopped off 01/13/25) Qty: 40 0RF furosemide [Lasix] 40 mg tablet 40 mg PO BID Qty: 10 0RF (DME) Mepilex Border 4 X 4 " bandage See Rx Instructions .Route Qty: 60 0RF Rx Instructions: Apply Mepilex bandage to right lateral sole wound daily. Apply Mepilex bandage to left 3rd toe amputation sight daily. Continued omeprazole 20 mg Tablet,Delayed Release (Dr/Ec) 20 mg PO DAILY PRN (Reason: Acid Reflux) Qty: 0 atenolol 50 mg tablet 50 mg PO DAILY Discharge Orders: Discharge Order (Routine); Ordered 01/14/25 Ordered By: Robbi Hook Discharge Order- [facility] (Routine); Ordered 01/14/25 Ordered By: Robbi Hook Admission Data Admit Date/Time: 01/11/25 21:59 Attending Provider: Robbi Hook Admdoni Provider: Pablo Gonzalez Primary Care Provider: Amadeo Michele Other Providers: Maximiliano Maciel; [facility]; [facility] Hospital Stay Data Consultations 01/11/25 23:27 Consult Podiatry Routine Procedures Performed Operation Date: 01/13/25 07:15 Actual Procedures p Left 3rd Toe Amputation(Left) - Maximiliano Maciel DPM Diagnostic Imagining Performed 01/11/25 18:04 CT foot RT w con Stat 01/14/25 11:19 CTA chest w con [CT angio chest w con] Stat Pending Results Patient Have Any Pending Studies at Discharge: Yes Discharge Instructions Given to Patient (Per Discharging Provider) 1. See your PCP Dr. Darci Trujillo within 5-7 days of hospital discharge for routine, follow up visit for mild shortness of breath with CTA chest (01/14/2025, 11:19am) negative for acute PE, infiltrate/consolidation, positive for cardiomegaly with mild, small bilateral pleural effusions. 2. See your Wound Care Nurse NASH Small, within 5-7 days of hospital discharge for routine, follow up visit regarding right foot cellulitis. 3. See your Podiatric Surgeon Dr. Maximiliano Maciel, within 5-7 days of hospital discharge for routine, follow up visit and to discuss final results of left third toe tip wound culture (01/13/2025, 7:40am). Total Time Total Time Spent Total Time Spent (In Minutes): 35 minutes. Of this time period, 19 minutes were spent in coordinating patient's discharge. Coding Level of Care Code 72381 INP/OBS DISCH >30 MIN Diagnoses Toe osteomyelitis, left M86.9 Cellulitis of right foot L03.115 Acute hyponatremia E87.1 Alcohol use F10.90 Acute diastolic CHF (congestive heart failure) I50.31
[2025-01-15 08:11] VITALS: BP 138/82; RESP 19; TEMP 98.1; O2SAT 91
[2025-01-15 08:11] LABS: Creatinine Clr Calc Pharmacy 139.5 ml/min
[2025-01-15 09:29] VITALS: PULSE 65
[2025-01-15] MEDS ORDERED: FUROSEMIDE 40 MG/4 ML VIAL IV ONE (11:33)
[2025-01-15] MEDS: FUROSEMIDE 80 MG TAB PO ONE (11:45)
== END 2025-01-15 13:13 | disposition home health service (06) | DRG 464 ==
LOC: ED 13:24 → SUATTDRO 21:59 → 3W 21:59